=== PATIENT | male | born 1985 | race Caucasian/White ===

== ENCOUNTER 2018-05-09 18:39 | Inpatient (IN) | payer OTHER ==
[2018-05-09] MEDS ORDERED: SODIUM CHLORIDE 0.9% 1000 ML INFUS.BAG IV ONE (20:25)
[2018-05-09 20:54] LABS: EOS % 2.6 % (0-4.5); HEMATOCRIT 41.4 % (35.4-49); HEMOGLOBIN 13.8 GM/dL (11.7-16.9); LYMPH % 13.5 % (8-40); MCH 31.6 pg (25.7-33.7); MCHC 33.3 g/dl (32.0-35.9); MEAN CELL VOLUME 94.9 fl (80-96); MEAN PLT VOLUME 9.9 fl (7.5-11.1); NEUT % 72.9 % (42.8-82.8); PLATELET COUNT 294 K/MM3 (134-434); RBC 4.36 M/mm3 (4.00-5.60); RDW 14.9 % (11.9-15.9); WHITE BLOOD COUNT 11.6 K/mm3 (4.0-10.0)
[2018-05-09 21:15] LABS: INR 1.21 (0.83-1.09); PROTHROMBIN TIME (PATIENT) 14.3 SEC (9.7-13.0)
[2018-05-09 21:17] LABS: ACTIVATED PTT 34.6 SECONDS (25.2-36.5)
[2018-05-09 21:26] LABS: ALBUMIN 2.8 g/dl (3.4-5.0); ALK PHOS 256 U/L (45-117); ANION GAP 8 MMOL/L (8-16); BILIRUBIN,TOTAL 6.7 mg/dL (0.2-1); BLOOD UREA NITROGEN 8 mg/dL (7-18); CALCIUM 8.7 mg/dL (8.5-10.1); CHLORIDE 104 mmol/L (98-107); CO2 25 mmol/L (21-32); CREATININE 0.4 mg/dL (0.55-1.3); GLUCOSE,RANDOM 152 mg/dL (74-106); LIPASE 122 U/L (73-393); MAGNESIUM 2.1 mg/dL (1.8-2.4); PHOSPHOROUS 3.1 mg/dL (2.5-4.9); SGOT/AST 584 U/L (15-37); SGPT/ALT 641 U/L (13-61); SODIUM 137 mmol/L (136-145); TOT PROT 7.5 g/dl (6.4-8.2)
--- NOTE | 2018-05-09 21:37 | PDOC ---
History of Present Illness - General Chief Complaint: Pain Stated Complaint: ABD RUIZ /RASH Time Seen by Provider: 05/09/18 19:15 History Source: Patient Exam Limitations: No Limitations - History of Present Illness Initial Comments: This is a 33 YOM with h/o heavy EtOH use, cocaine use, and marijuana use who p/ w 3/10 epigastric abdominal pain for the past week, diffuse itchy red patchy rash on BUE, trunk, and knees for the past 1-2 days, and yellowing of the eyes worsening over the past week. He additionally notes nausea, decreased appetite, diarrhea, tiredness, and generalized weakness. He denies vomiting, fever, chills , constipation, black/bloody/white stool, abdominal distention, constipation, or other symptoms. He has never had symptoms like this before and has not taken medications for his symptoms. He notes drinking at least 5 beers a day at baseline, often more. He denies any recent travel or contact with sick individuals, and denies h/o hepatitis. He is accompanied by a edge stitcher who notes he has been behaving per his normal baseline. Past History - Past Medical History Allergies/Adverse Reactions: Allergies Allergy/AdvReac Type Severity Reaction Status Date / Time No Known Allergies Allergy Verified 05/09/18 20:37 Home Medications: Ambulatory Orders NK [No Known Home Medication] 05/09/18 COPD: No - Suicide/Smoking/Psychosocial Hx Smoking History: Never smoked Information on smoking cessation initiated: No Hx Alcohol Use: Yes Drug/Substance Use Hx: Yes (COCCAINE, WILLIAMS) Substance Use Type: None Review of Systems - Review of Systems Able to Perform ROS?: Yes Constitutional: Yes: Loss of Appetite, Malaise, Weakness. No: Chills, Fever, Unexplained wgt Loss HEENTM: Yes: Other (scleral icterus). No: Nose Congestion, Throat Pain Respiratory: No: Cough, Shortness of Breath Cardiac (ROS): No: Chest Pain, Palpitations ABD/GI: Yes: Diarrhea, Nausea, Other (abdominal pain). No: Abdominal Distended , Constipated, Vomiting : No: Burning, Dysuria Musculoskeletal: No: Back Pain, Neck Pain Integumentary: Yes: Pruritus, Rash. No: Bruising Neurological: No: Headache, Numbness, Tingling, Weakness, Dizziness Endocrine: No: Unexplained Weight Gain, Unexplained Weight Loss *Physical Exam - Vital Signs Last Vital Signs Temp Pulse Resp BP Pulse Ox 99.1 F 90 18 122/84 100 05/09/18 18:43 05/09/18 18:43 05/09/18 18:43 05/09/18 18:43 05/09/18 18:43 GENERAL: nontoxic appearing, nourished, A/Ox4, no acute distress, speaking in full sentences in Somali, answers questions appropriately, accompanied by edge stitcher, obvious scleral icterus but no obvious skin jaundice HEENT: PERRLA, EOMI, moist mucous membranes, no posterior pharyngeal erythema, no tonsillar swelling or exudates, no cervical lymphadenopathy NECK: No midline ttp, no spinal stepoff or deformity, full ROM, supple CARDIOVASCULAR: Regular rate and rhythm, normal S1S2, 1/6 systolic murmur, no gallops or rubs, radial and DP pulses 2+ and symmetric, capillary refill <2 seconds, extremities warm and well-perfused Chest wall: Normal appearance, no rash, no bruising, no costal stepoff or deformity, nontender to compression LUNGS/RESPIRATORY: No respiratory distress, normal and symmetric chest movements during respirations, lungs CTA bilaterally, equal breath sounds, no cyanosis, no nail clubbing GI/ABDOMEN: Normal symmetric appearance, normoactive bowel sounds, soft, mild epigastric ttp, no midline pulsatile masses, no palpated organomegaly : No CVA tenderness, normal external appearance, no lesions BACK: No midline ttp or stepoff or deformity of thoracic or lumbar spine EXTREMITIES: distal pulses 2+, warm and well-perfused, no LE edema SKIN: patchy coalescing erythematous patches scattered throughout BUE, anterior trunk, and to a lesser extend on anterior superior knees bilaterally, mild excoriations from scratching, skin otherwise warm and dry, no pallor, no jaundice (though scleral icterus noted), no bruising, no skin breakdown, no cuts NEUROLOGICAL: GCS 15, CN II-XII grossly intact, ambulating with normal gait, moving all extremities, 5/5 strength proximally and distally, no facial droop, no decreased sensation, no asterixis, no tremor Heart Score/ECG Review #1 05/09/18 21:38 NSR rate of 75 with normal axis and intervals, no ischemic ST-T changes ED Treatment Course - LABORATORY CBC & Chemistry Diagram: 05/09/18 20:30 05/09/18 20:30 - ADDITIONAL ORDERS Additional order review: 05/09/18 20:30 RBC 4.36 MCV 94.9 MCHC 33.3 RDW 14.9 MPV 9.9 Neutrophils % 72.9 Lymphocytes % 13.5 Monocytes % 10.0 Eosinophils % 2.6 Basophils % 1.0 - RADIOLOGY Radiology Studies Ordered: Category Date Time Status CHEST PA & LAT [RAD] Stat Radiology 05/09/18 20:25 Ordered - Medications Given in the ED: ED Medications Discontinued Medications Generic Name Dose Route Start Last Admin Trade Name Freq PRN Reason Stop Dose Admin Sodium Chloride 2,000 ml 05/09/18 20:25 05/09/18 20:47 Normal Saline - IV 05/09/18 20:26 2,000 ml ONCE ONE Administration Medical Decision Making - Medical Decision Making Pt with heavy EtOH use presents with jaundice, malaise, acute hepatitis. Initial Vital Signs Temp Pulse Resp BP Pulse Ox 99.1 F 90 18 122/84 100 05/09/18 18:43 05/09/18 18:43 05/09/18 18:43 05/09/18 18:43 05/09/18 18:43 Exam: As noted in Physical Exam section. DDX IBNLT: viral (ABCDE), toxins (e.g. alcohol/acetaminophen/ cap mushroom) , autoimmune, biliary tract obstruction, fatty liver disease, cirrhosis (e.g. h/ o EtOH dependence or HCC), SBP, hemolysis W/U ordered: CBCD CMP Mg Phos Coags UA UCx EKG CXR TX ordered: IVF EKG: Reviewed; results as noted in ECG Review section. CXR: Nothing acute Laboratory Tests 05/09/18 05/09/18 05/09/18 20:30 20:30 20:30 WBC 11.6 H RBC 4.36 Hgb 13.8 Hct 41.4 MCV 94.9 MCH 31.6 MCHC 33.3 RDW 14.9 Plt Count 294 MPV 9.9 Absolute Neuts (auto) 8.4 H Neutrophils % 72.9 Lymphocytes % 13.5 Monocytes % 10.0 Eosinophils % 2.6 Basophils % 1.0 Nucleated RBC % 0 PT with INR 14.30 H INR 1.21 H PTT (Actin FS) 34.6 Sodium 137 Potassium 4.0 Chloride 104 Carbon Dioxide 25 Anion Gap 8 BUN 8 Creatinine 0.4 L Creat Clearance w eGFR > 60 Random Glucose 152 H Calcium 8.7 Phosphorus 3.1 Magnesium 2.1 Total Bilirubin 6.7 H AST 584 H ALT 641 H Alkaline Phosphatase 256 H Creatine Kinase 30 Troponin I 0.03 Total Protein 7.5 Albumin 2.8 L Lipase 122 Acetaminophen Alcohol, Quantitative 05/09/18 05/09/18 05/09/18 20:30 20:30 20:30 WBC RBC Hgb Hct MCV MCH MCHC RDW Plt Count MPV Absolute Neuts (auto) Neutrophils % Lymphocytes % Monocytes % Eosinophils % Basophils % Nucleated RBC % PT with INR INR PTT (Actin FS) Sodium Potassium Chloride Carbon Dioxide Anion Gap BUN Creatinine Creat Clearance w eGFR Random Glucose Calcium Phosphorus Magnesium Total Bilirubin AST ALT Alkaline Phosphatase Creatine Kinase Cancelled Troponin I Cancelled Total Protein Albumin Lipase Cancelled Acetaminophen < 2.0 L Alcohol, Quantitative 43.5 H Vital Signs Temperature 98.1 F 05/09/18 23:15 Pulse Rate 84 05/09/18 23:15 Respiratory Rate 20 05/09/18 23:15 Blood Pressure 122/82 05/09/18 23:15 O2 Sat by Pulse Oximetry (%) 96 05/09/18 23:15 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 They require further hospital observation, workup, and treatment. Microblog sent to [facility] for admission. Blank Decision to Admit order is placed per ED protocol. *DC/Admit/Observation/Transfer Diagnosis at time of Disposition: Cholecystitis, Hyperbilirubinemia, Elevated transaminase level - Discharge Dispostion Condition at time of disposition: Guarded Decision to Admit order: Yes - Referrals - Patient Instructions - Post Discharge Activity
--- NOTE | 2018-05-10 00:27 | PDOC ---
Attending Attestation - Resident Resident Name: Skye Melendez - ED Attending Attestation I have performed the following: I have examined & evaluated the patient, The case was reviewed & discussed with the resident, I agree w/resident's findings & plan, Exceptions are as noted - HPI HPI: 05/10/18 00:25 The patient is a 33 year old male, with a past medical history of alcohol abuse , cocaine usage, and marijuana usage, who presents to the emergency department with 1 week of epigastric pain and upper left quadrant pain. Patient also endorses 2 days of diffuse rash. As per patients family, his eyes have become progressively yellow over the past week. The patient endorses nausea, generalized weakness, decreased appetite, and diarrhea. He denies any recent fevers, chills, headache or dizziness. He denies any recent nausea, vomit, diarrhea or constipation. He denies any recent chest pain or shortness of breath. He denies any recent dysuria, frequency, urgency or hematuria. Allergies: NKDA Past surgical history: None reported. Social History: Alcohol abuse (minimum 5 beers per day) Marijuana and cocaine usage. - Physicial Exam PE: 05/10/18 00:26 GENERAL: Awake, alert, and fully oriented, in no acute distress. HEAD: No signs of trauma EYES: + scleral icterus, PERRLA, EOMI, conjunctiva clear ENT: Auricles normal inspection, hearing grossly normal, nares patent, oropharynx clear without exudates. Moist mucosa NECK: Nontender, no stepoffs, Normal ROM, supple, no lymphadenopathy, JVD, or masses LUNGS: Breath sounds equal, clear to auscultation bilaterally. No wheezes, and no crackles HEART: Regular rate and rhythm, normal S1 and S2, no murmurs, rubs or gallops ABDOMEN: + epigastric TTP, negative hernandez's, normoactive bowel sounds. No guarding, no rebound. No masses EXTREMITIES: Normal range of motion, no edema. No clubbing or cyanosis. No cords, erythema, or tenderness NEUROLOGICAL: Cranial nerves II through XII intact. 5/5 strength and sensation in all extremities, Normal speech, normal gait, normal cerebellar function SKIN: + jaundice - Medical Decision Making 05/10/18 00:26 33 M with jaundice and abdominal pain. Has h/o ETOH abuse. Concerning for liver failure. WIll also evaluate for biliary obstruction, though pt has negative hernandez's. - Labs - RUQ sono
[2018-05-10] MEDS ORDERED: SODIUM CHLORIDE 0.9% 500 ML INFUS.BAG IV ONE (00:43)
[2018-05-10] MEDS ORDERED: VANCOMYCIN 1 GRAM (PRE-DOCKED) 1,000 MG/250 ML BAG IVPB ONE ×2 (00:43→01:07)
[2018-05-10] MEDS ORDERED: PIPERACILLIN/TAZOB 4.5 GM 4.5 GM in DEXTROSE 5%-WATER 100 ML IVPB ONE (00:43)
[2018-05-10] MEDS ORDERED: PIPERACILLIN/TAZOB 4.5 GM 4.5 GM/100 ML BAG IVPB ONE (01:07)
--- NOTE | 2018-05-10 01:27 | PN ---
Teaching Attending Note Name of Resident: Ruben Tate ATTENDING PHYSICIAN STATEMENT I saw and evaluated the patient. I reviewed the resident's note and discussed the case with the resident. I agree with the resident's findings and plan as documented. SUBJECTIVE: Patient is a 33 year old man with history of heavy EtOH use, cocaine use, and marijuana use who presents with epigastric abdominal pain for the past week, diffuse itchy red patchy rash on BUE, trunk, and knees for the past 1-2 days, and yellowing of the eyes. He additionally notes nausea, decreased appetite, diarrhea, tiredness, and generalized weakness. He denies vomiting, fever, chills , constipation, black/bloody/white stool, abdominal distention or constipation. He has never had symptoms like this before and has not taken medications for his symptoms. He notes drinking at least 5 beers a day at baseline, often more. He denies any recent travel or contact with sick individuals, and denies history of hepatitis. He is accompanied by a steam blocker who notes he has been behaving per his normal baseline. OBJECTIVE: Alert Vital Signs Period Temp Pulse Resp BP Sys/Johnson Pulse Ox Last 24 Hr 98.1 F-99.1 F 84-90 18-20 122-122/82-84 96-100 HEENT: +++Jaundice, eye redness or discharge, PERRLA, EOMI. Normocephalic, atraumatic. External ears are normal and hearing is grossly intact. No nasal discharge. Neck: Supple, nontender. No palpable adenopathy or thyromegaly. No JVD Chest: Good effort. Clear to auscultation and percussion. Heart: Regular. No S3, rub or murmur Abdomen: Not distended, soft, epigastric tenderness and no HSM. No rebound or guarding. Normoactive bowel sounds. Ext: Peripheral pulses intact. No leg edema. Skin: Warm and dry. Generalized erythematous macucopapular rash; No petechiae or ecchymosis. Neuro: Alert. Oriented x3. Fine tremors; no asterexis; CN 2-12 grossly intact. Sensation grossly intact in all four extremities and DTR are symmetric. Current Medications Generic Name Dose Route Start Last Admin Trade Name Freq PRN Reason Stop Dose Admin Folic Acid 1 mg/ Thiamine HCl 1,000 mls @ 125 mls/hr 05/10/18 01:37 05/10/18 02:20 100 mg/ Multivitamins/Minerals IVPB 05/10/18 09:36 125 mls/hr 10 ml/ Sodium Chloride ONCE ONE Administration Home Medications Medication Instructions Recorded NK [No Known Home Medication] 05/09/18 Abnormal Lab Results 05/09/18 05/09/18 05/09/18 20:30 20:30 20:30 WBC 11.6 H Absolute Neuts (auto) 8.4 H PT with INR 14.30 H INR 1.21 H Creatinine 0.4 L Random Glucose 152 H Total Bilirubin 6.7 H AST 584 H ALT 641 H Alkaline Phosphatase 256 H Albumin 2.8 L Acetaminophen Alcohol, Quantitative 05/09/18 20:30 WBC Absolute Neuts (auto) PT with INR INR Creatinine Random Glucose Total Bilirubin AST ALT Alkaline Phosphatase Albumin Acetaminophen < 2.0 L Alcohol, Quantitative 43.5 H ASSESSMENT AND PLAN: 1. Acute Hepatitis/Cholecystitis - Sonogram showed cholecystitis without any evidence of bile duct obstruction - CT scan of abdomen is pending for further clarification. Associated rash suggests acute Hepatitis C disease or rash may be "after the fact" - due to pruritus induced by liver disease caused by alcohol. Hepatitis serology sent. Treat Cholecystitis with IV Zosyn pending surgery evaluation. Get UA, HIV test and urine toxicology. Avoid all factors that may precipitate hepatic encephalopathy and monitor closely for features of hepatic encephalopathy. Will decide on treatment with lactulose and rifaximin once abdominal CT scan result is available. Consult GI and Surgery. 2. Alcohol abuse - Implement [facility] alcohol withdrawal protocol and fall precautions. Treat with thiamine, banana bag and folic acid and monitor electrolytes (Ca,Mg,K,P). 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 3. DVT prophylaxis - SCD, TEDs 4. Advance directives - Full code
[2018-05-10] MEDS ORDERED: FOLIC ACID INJECTION - 1 MG, THIAMINE HCL 100 MG, MULTIVIT INJECTION ADULT 10 ML in SOD... IVPB ONE (01:37)
--- NOTE | 2018-05-10 02:45 | HP ---
CHIEF COMPLAINT: PCP: None HISTORY OF PRESENT ILLNESS: Pt is a 33 y/o gentleman with a past medical history of substance abuse who presented to [facility] yesterday evening (05/09/18) c/o epigastric pain 3/10 in severity, intense itchying on his upper extremities, abdomen, and left knee, and "yellowing of his eyes" which began 2 weeks ago. Rash has been present for approximately 2 days. Pain has been present for 1 week. Pt has vomited 3 times since this past Wednesday. Vomit is described as yellow and nonbloody. Furthermore, pt endorses decreased appetite and general malaise for the past 2 weeks. Pt states he has never experienced these symptoms in the past and has not tried any remedies for his symptoms. Pt endorses that he consumes about 5-6 beers per day and has increased his alcohol intake the past 1 year. Also endorses using cocaine approximately once a week. Denies constipation, bloody stool, chest pain, shortness of breath, dysuria, frequency, urgency or hematuria. ER course was notable for: (1) AST/ALT 584/641 respectively (2) Alcohol tox--> 43.5 (3) Bilirubin 6.7 Recent Travel: denies PAST MEDICAL HISTORY: Substance abuse-Alcohol, cocaine. PAST SURGICAL HISTORY: Denies Social History: Smoking: Smokes Marijuana Alcohol: Consumes 5/6 beers/day. Drugs: Cocaine use approximately once/week Family History: Allergies No Known Allergies Allergy (Verified 05/09/18 20:37) HOME MEDICATIONS: Home Medications Medication Instructions Recorded NK [No Known Home Medication] 05/09/18 REVIEW OF SYSTEMS CONSTITUTIONAL: PRESENT: generalized weakness, malaise, loss of appetite HEENT: Absent: rhinorrhea, nasal congestion, throat pain, throat swelling, difficulty swallowing, mouth swelling, ear pain, eye pain, visual changes CARDIOVASCULAR: Absent: chest pain, syncope, palpitations, irregular heart rate, lightheadedness , peripheral edema RESPIRATORY: Absent: cough, shortness of breath, dyspnea with exertion, orthopnea, wheezing, stridor, hemoptysis GASTROINTESTINAL: PRESENT: abdominal pain, , nausea, vomiting GENITOURINARY: Absent: dysuria, frequency, urgency, hesitancy, hematuria, flank pain, genital pain MUSCULOSKELETAL: Absent: myalgia, arthralgia, joint swelling, back pain, neck pain SKIN: Absent: rash, itching, pallor HEMATOLOGIC/IMMUNOLOGIC: Absent: easy bleeding, easy bruising, lymphadenopathy, frequent infections ENDOCRINE: Absent: unexplained weight gain, unexplained weight loss, heat intolerance, cold intolerance NEUROLOGIC: Absent: headache, focal weakness or paresthesias, dizziness, unsteady gait, seizure, mental status changes, bladder or bowel incontinence PSYCHIATRIC: Absent: anxiety, depression, suicidal or homicidal ideation, hallucinations. PHYSICAL EXAMINATION Vital Signs - 24 hr 05/09/18 05/09/18 18:43 23:15 Temperature 99.1 F 98.1 F Pulse Rate 90 Pulse Rate [ 84 Left Radial] Respiratory 18 20 Rate Blood Pressure 122/84 Blood Pressure 122/82 [Left Arm] O2 Sat by Pulse 100 96 Oximetry (%) GENERAL: AAOx3, NAD HEAD: NC/AT EYES: PERRLA, EOMI, Scleral icterus EARS, NOSE, THROAT: MMM LUNGS: Clear to auscultation b/l, no wheezing, rhonchi, or rales HEART: RRR no MRG S1 S2 ABDOMEN: Multiple erythematous rashes on abdomen 2/2 intense itchying, ND, NT, No HSM. [place] - MUSCULOSKELETAL: FROM UPPER EXTREMITIES: No CCE LOWER EXTREMITIES: No CCE NEUROLOGICAL: Cn 2-12 intact PSYCHIATRIC: Cooperative. Good eye contact. Appropriate mood and affect. SKIN: Rashes left upper knee, b/l antecubital fossa, abdomen Laboratory Results - last 24 hr 05/09/18 05/09/18 05/09/18 20:30 20:30 20:30 WBC 11.6 H RBC 4.36 Hgb 13.8 Hct 41.4 MCV 94.9 MCH 31.6 MCHC 33.3 RDW 14.9 Plt Count 294 MPV 9.9 Absolute Neuts (auto) 8.4 H Neutrophils % 72.9 Lymphocytes % 13.5 Monocytes % 10.0 Eosinophils % 2.6 Basophils % 1.0 Nucleated RBC % 0 PT with INR 14.30 H INR 1.21 H PTT (Actin FS) 34.6 Sodium 137 Potassium 4.0 Chloride 104 Carbon Dioxide 25 Anion Gap 8 BUN 8 Creatinine 0.4 L Creat Clearance w eGFR > 60 Random Glucose 152 H Calcium 8.7 Phosphorus 3.1 Magnesium 2.1 Total Bilirubin 6.7 H AST 584 H ALT 641 H Alkaline Phosphatase 256 H Creatine Kinase 30 Troponin I 0.03 Total Protein 7.5 Albumin 2.8 L Lipase 122 Acetaminophen Alcohol, Quantitative 05/09/18 05/09/18 05/09/18 20:30 20:30 20:30 WBC RBC Hgb Hct MCV MCH MCHC RDW Plt Count MPV Absolute Neuts (auto) Neutrophils % Lymphocytes % Monocytes % Eosinophils % Basophils % Nucleated RBC % PT with INR INR PTT (Actin FS) Sodium Potassium Chloride Carbon Dioxide Anion Gap BUN Creatinine Creat Clearance w eGFR Random Glucose Calcium Phosphorus Magnesium Total Bilirubin AST ALT Alkaline Phosphatase Creatine Kinase Cancelled Troponin I Cancelled Total Protein Albumin Lipase Cancelled Acetaminophen < 2.0 L Alcohol, Quantitative 43.5 H ASSESSMENT/PLAN: Pt is a 33 y/o gentleman with a past medical history of substance abuse who presented to [facility] yesterday evening (05/09/18) c/o epigastric pain 3/10 in severity, intense itchying on his upper extremities, abdomen, and left knee, and "yellowing of his eyes" which began 2 weeks ago. # Transaminitis 2/2 Hepatitis/substance abuse? -AST/ALT 584/641 respectively - Bilirubin 6.7 -Alk Phos 256 -U/S Abdomen--> Moderate suspicion for Cholecystitis w/o billiary duct dilation -Hepatitis serology pending -Urine Drug screen pending -Abdomen/Pelvis CT w/ contrast pending -Surgery Consult -G.I consult -CIWA score 7 indicating mild withdrawal -Librium protocol initiated -Thiamine -Banana Bag -Folic Acid -HIV testing # Possible Cholecystitis -WBC 11.6 -U/S Abdomen --> Moderate suspicion for Cholecystitis w/o billiary duct dilation -Surgery, Dr Trejo on board -IV Zosyn/Vancomycin Given in ED -NPO FEN D51/2NS Monitor Electrolytes NPO DVT ppx: Heparin SQ TID Dispo: Continue to monitor Visit type - Emergency Visit Emergency Visit: Yes ED Registration Date: 05/10/18 Care time: The patient presented to the Emergency Department on the above date and was hospitalized for further evaluation of their emergent condition. - New Patient This patient is new to me today: Yes Date on this admission: 05/10/18 - Critical Care Critical Care patient: No
[2018-05-10 03:00] LABS: URINE APPEARANCE CLEAR; URINE BILIRUBIN NEGATIVE (<2.0 mg/dL); URINE COLOR AMBER; URINE GLUCOSE (UA) NEGATIVE (NEGATIVE); URINE KETONE 1+ (NEGATIVE); URINE LEUK ESTERASE TRACE (NEGATIVE); URINE NITRITE NEGATIVE (NEGATIVE); URINE PROTEIN NEGATIVE (NEGATIVE)
[2018-05-10 03:07] LABS: EPI CELLS RARE /HPF (FEW); URINE BACTERIA RARE /hpf (NONE SEEN); URINE MUCUS RARE
[2018-05-10] MEDS ORDERED: chlordiazePOXIDE HCL 25 MG CAPSULE PO PRN (03:10)
[2018-05-10 05:34] VITALS: BMI 24.2
[2018-05-10] MEDS ORDERED: HEPARIN NA (PORCINE) 5,000 UNITS/ML 1ML VIAL SQ SCH (06:00)
[2018-05-10] MEDS: DEXTROSE 5%-0.45% SALINE 1,000 ML IV SCH ×2 (06:28→21:38)
[2018-05-10] MEDS: chlordiazePOXIDE HCL 25 MG CAPSULE PO SCH ×4 (06:28→22:13)
[2018-05-10 08:25] LABS: BASO % 1.3 % (0-2.0); EOS % 2.1 % (0-4.5); HEMOGLOBIN 12.7 GM/dL (11.7-16.9); LYMPH % 14.3 % (8-40); MCH 31.8 pg (25.7-33.7); MCHC 33.5 g/dl (32.0-35.9); MEAN PLT VOLUME 9.9 fl (7.5-11.1); MONO % 8.9 % (3.8-10.2); NEUT % 73.4 % (42.8-82.8); PLATELET COUNT 235 K/MM3 (134-434); RDW 14.8 % (11.9-15.9); WHITE BLOOD COUNT 9.6 K/mm3 (4.0-10.0)
[2018-05-10 08:39] LABS: INR 1.26 (0.83-1.09); PROTHROMBIN TIME (PATIENT) 14.9 SEC (9.7-13.0)
[2018-05-10 08:42] LABS: ACTIVATED PTT 35.3 SECONDS (25.2-36.5)
[2018-05-10 08:57] LABS: ANION GAP 7 MMOL/L (8-16); BLOOD UREA NITROGEN 6 mg/dL (7-18); CALCIUM 8.3 mg/dL (8.5-10.1); CHLORIDE 101 mmol/L (98-107); CO2 26 mmol/L (21-32); CREATININE 0.4 mg/dL (0.55-1.3); GLUCOSE,RANDOM 156 mg/dL (74-106); PHOSPHOROUS 3.8 mg/dL (2.5-4.9); SODIUM 134 mmol/L (136-145)
[2018-05-10 09:05] LABS: ALBUMIN 2.5 g/dl (3.4-5.0); BILIRUBIN,DIRECT 5.1 mg/dL (0.0-0.2); BILIRUBIN,TOTAL 6.7 mg/dL (0.2-1); TOT PROT 6.5 g/dl (6.4-8.2)
[2018-05-10] MEDS ORDERED: PT OWN MED DRAWER 7, Y5N ONE ×3 (10:00→21:31)
[2018-05-10] MEDS: AMPICILLIN NA/SULBACTAM NA 3 GM in SODIUM CHLORIDE 100 ML IVPB SCH ×3 (10:03→21:38)
[2018-05-10 10:06] LABS: ALBUMIN 2.5 g/dl (3.4-5.0); ALK PHOS 211 U/L (45-117); BILIRUBIN,DIRECT 5.1 mg/dL (0.0-0.2); BILIRUBIN,TOTAL 6.7 mg/dL (0.2-1); SGOT/AST 421 U/L (15-37); SGPT/ALT 495 U/L (13-61); TOT PROT 6.5 g/dl (6.4-8.2)
[2018-05-10] MEDS ORDERED: LORazepam 2 MG/ML SDV VIAL IM PRN (10:18)
--- NOTE | 2018-05-10 11:17 | CONSULT ---
Consult Consult Specialty:: General Surgery Referred by:: Blas Warren Reason for Consultation:: elevated LFTs, jaundice, pericholecystic fluid, no gallstones - History of Present Illness Chief Complaint: jaundice, epigastric pain, pruritus History of Present Illness: 33yo M with no medical or surgical history, polysubstance abuser (EtOH , cocaine, marijuana), admitted to medicine through the ER with 2 weeks of jaundice and pruritus, 1 week of epigastric pain (points just left of upper midline), associated with few episodes of N/V last Wed and (preceded by pain, accompanied by dizziness), darkening of urine, diarrhea all last week ( yellow), occasional chills but no fever, no recent illness, and more recent development of rash with the itching. About a year ago, he describes somewhat similar epigastric pain, but did not seek medical attention for it at the time. He has drunk beer daily/regularly since his teens, but only in last year has increased to 6-8+ beers a day. He denies using liquor or wine. He also used to smoke MJ daily, but stopped several months ago, though he did have some about 2 weeks ago. Also snorts cocaine about weekly, last on Wednesday. Denies IVDU. In the ER, he was afebrile, with wbc 11, elevated LFTs with bili 6.7, lipase 111 , INR 1.2, EtOH level 43.5, and US showed distended gallbladder without stones, but with small pericholecystic fluid and mildly thickened wall, normal cbd. CT was then done, confirming these findings, with fatty, enlarged liver. No ductal dilation noted. Pancreas was not remarkable on CT. Surgery is asked to assess. He is seen and examined in his room, just returned from bathroom. He denies pain now, but points to upper midline, just to the left side, when asked where it was. He is getting Librium taper for his EtOH use, IV fluids and antibiotics for possible cholecystitis. - History Source History Provided By: Patient Limitations to Obtaining History: Language Barrier (Iraqi - Karla Yusuf, MS3 facilitated at bedside) - Past Medical History Psych: Yes: Addictions (EtOH, cocaine, marijuana) - Past Surgical History Past Surgical History: Yes: None - Alcohol/Substance Use Hx Alcohol Use: Yes (6-8+ beers/day in last year, increased over daily use since teens) Number of Drinks Daily: 8 (12+ Wednesday, 2 Wednesday, 0 Wednesday) History of Substance Use: reports: Cocaine (weekly, last on Wednesday), Marijuana (daily till ~5 mos ago, used 2 wks ago once) - Smoking History Smoking history: Never smoked (cigarettes) Have you smoked in the past 12 months: No Aproximately how many cigarettes per day: 0 (no cigarettes) - Social History ADL: Independent 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 denies: Fever Eyes: denies: Blurred Vision, Recent Change in Vision HENT: denies: Difficult Swallowing, Nasal Congestion, Throat Pain Neck: denies: Swollen Glands, Tenderness Cardiovascular: denies: Chest Pain, Palpitations Respiratory: reports: Orthopnea (? has felt occasional trouble breathing when lying down to sleep at night). denies: Cough Gastrointestinal: reports: Abdominal Pain (with hpi), Diarrhea (with hpi, yellow ), Nausea (with hpi), Vomiting (with hpi). denies: Constipation, Vomiting Blood Genitourinary: reports: Other (darker urine recently). denies: Burning, Dysuria Musculoskeletal: reports: Muscle Pain (had stressed posterior left shoulder). denies: Back Pain, Joint Pain Integumentary: reports: Change in Color (2 wks yellowish eyes and skin), Pruritis (about 2 weeks), Rash (more recently with itching) Neurological: denies: Dizziness, Headache, Unsteady Gait Psychiatric: denies: Anxiety, Depression Physical Exam Vital Signs: Vital Signs Temperature 97.8 F 05/10/18 03:31 Pulse Rate 74 05/10/18 03:31 Respiratory Rate 18 05/10/18 07:00 Blood Pressure 121/74 05/10/18 03:31 O2 Sat by Pulse Oximetry (%) 98 05/10/18 07:00 Constitutional: Yes: Well Nourished, No Distress, Calm Eyes: Yes: EOM Intact, Sclera Icterus HENT: Yes: Atraumatic, Normocephalic Neck: Yes: Supple, Trachea Midline Cardiovascular: Yes: Regular Rate and Rhythm. No: Murmur Respiratory: Yes: CTA Bilaterally Gastrointestinal: Yes: Normal Bowel Sounds, Soft, Tenderness (minimal RLQ, none in RUQ), Tenderness, Epigastrium (minimal, no michelle/guard). No: Distention, Tenderness, Rebound, Vomiting ...Rectal Exam: Yes: Deferred Renal/: No: CVA Tenderness - Left, CVA Tenderness - Right Musculoskeletal: No: Back Pain (no direct tenderness), Joint Swelling Extremities: No: Cool, Cyanosis Edema: No Peripheral Pulses WNL: Yes Integumentary: Yes: Jaundice, Rash (diffuse subtle macular pink spots on trunk, arms with few healing scratch roblero) Neurological: Yes: Alert, Oriented. No: Tremors, Unsteady Gait Psychiatric: Yes: Alert, Oriented Labs: CBC, BMP 05/10/18 07:10 05/10/18 07:10 CMP Sodium 134 mmol/L (136-145) L 05/10/18 07:10 Potassium 4.0 mmol/L (3.5-5.1) 05/10/18 07:10 Chloride 101 mmol/L (98-107) 05/10/18 07:10 Carbon Dioxide 26 mmol/L (21-32) 05/10/18 07:10 Anion Gap 7 MMOL/L (8-16) L 05/10/18 07:10 BUN 6 mg/dL (7-18) L 05/10/18 07:10 Creatinine 0.4 mg/dL (0.55-1.3) L 05/10/18 07:10 Creat Clearance w eGFR > 60 (>60) 05/10/18 07:10 Random Glucose 156 mg/dL (74-106) H 05/10/18 07:10 Calcium 8.3 mg/dL (8.5-10.1) L 05/10/18 07:10 Phosphorus 3.8 mg/dL (2.5-4.9) 05/10/18 07:10 Magnesium 2.0 mg/dL (1.8-2.4) 05/10/18 07:10 Total Bilirubin 6.7 mg/dL (0.2-1) H 05/10/18 07:10 Direct Bilirubin 5.1 mg/dL (0.0-0.2) H 05/10/18 07:10 AST 421 U/L (15-37) H 05/10/18 07:10 ALT 495 U/L (13-61) H 05/10/18 07:10 Alkaline Phosphatase 211 U/L (45-117) H 05/10/18 07:10 Creatine Kinase 30 IU/L (26-308) 05/09/18 20:30 Troponin I 0.03 ng/ml (0.00-0.05) 05/09/18 20:30 Total Protein 6.5 g/dl (6.4-8.2) 05/10/18 07:10 Albumin 2.5 g/dl (3.4-5.0) L 05/10/18 07:10 Lipase 122 U/L (73-393) 05/09/18 20:30 LFTs elevated with direct hyperbilirubinemia wbc was 11, now normal with hydration renal function normal Na little low lipase normal INR, PTT INR 1.26 (0.83-1.09) H 05/10/18 07:10 Urine Test Results Urine Color Hilary 05/10/18 02:26 Urine Appearance Clear 05/10/18 02:26 Urine pH 6.0 (5.0-8.0) 05/10/18 02:26 Ur Specific Edward 1.015 (1.010-1.035) 05/10/18 02:26 Urine Protein Negative (NEGATIVE) 05/10/18 02:26 Urine Glucose (UA) Negative (NEGATIVE) 05/10/18 02:26 Urine Ketones 1+ (NEGATIVE) H 05/10/18 02:26 Urine Blood Negative (NEGATIVE) 05/10/18 02:26 Urine Nitrite Negative (NEGATIVE) 05/10/18 02:26 Urine Bilirubin Negative (<2.0 mg/dL) 05/10/18 02:26 Ur Leukocyte Esterase Trace (NEGATIVE) 05/10/18 02:26 Ur Epithelial Cells Rare /HPF (FEW) 05/10/18 02:26 Urine Bacteria Rare /hpf (NONE SEEN) 05/10/18 02:26 Urine Mucus Rare 05/10/18 02:26 Imaging - Results Cat Scan: Report Reviewed, Image Reviewed (images personally reviewed - no gallstones, small pericholecystic fluid without ductal dilation, no obstruction , pancreas ok, no appendicitis or diverticulitis, liver does not appear grossly nodular, but is enlarged) Ultrasound: Report Reviewed, Image Reviewed (images personally reviewed, cbd normal, no gallstones or sludge appreciated, gb just over 8cm long, small pericholecystic fluid, mild wall thickening) MRI: Pending Problem List - Problems (1) Hyperbilirubinemia Code(s): E80.6 - OTHER DISORDERS OF BILIRUBIN METABOLISM (2) Elevated transaminase level Code(s): R74.0 - NONSPEC ELEV OF LEVELS OF TRANSAMNS & LACTIC ACID DEHYDRGNSE (3) Abnormal AST and ALT Code(s): R74.8 - ABNORMAL LEVELS OF OTHER SERUM ENZYMES (4) Abnormal alkaline phosphatase test Code(s): R74.8 - ABNORMAL LEVELS OF OTHER SERUM ENZYMES (5) Alcohol induced fatty liver Code(s): K70.0 - ALCOHOLIC FATTY LIVER (6) Alcohol abuse with other alcohol-induced disorder Code(s): F10.188 - ALCOHOL ABUSE WITH OTHER ALCOHOL-INDUCED DISORDER (7) Cocaine abuse Code(s): F14.10 - COCAINE ABUSE, UNCOMPLICATED (8) Marijuana abuse Code(s): F12.10 - CANNABIS ABUSE, UNCOMPLICATED Assessment/Plan admitted to medicine suspect primary liver (or pancreas) problem more than gallbladder pathology - doubt acalculous cholecystitis hep panels pending NPO/IVF trend labs check ammonia level, baseline MRI/MRCP with contrast pending GI consultation, possible ERCP will follow with you
--- NOTE | 2018-05-10 11:46 | EKG ---
Test Reason : Blood Pressure : / mmHG Vent. Rate : 075 BPM Atrial Rate : 075 BPM P-R Int : 136 ms QRS Dur : 080 ms QT Int : 416 ms P-R-T Axes : 040 000 010 degrees QTc Int : 464 ms NORMAL SINUS RHYTHM NORMAL ECG NO PREVIOUS ECGS AVAILABLE Confirmed by Sergio Guerrier MD ([id number]) on 05/10/2018 11:46:28 AM Referred By: Confirmed By:Sergio Guerrier MD
--- NOTE | 2018-05-10 13:04 | PN ---
Teaching Attending Note Name of Resident: Verenice Russell ATTENDING PHYSICIAN STATEMENT I saw and evaluated the patient. I reviewed the resident's note and discussed the case with the resident. I agree with the resident's findings and plan as documented. SUBJECTIVE: No fever or chills, No abd pain, reports intermittent abd pain x 2 weeks , then became intense and more prolonged in past 2 days . He has no abd pain now. He reports pain coming after before meals. pain was associated with N/V , of non bloody non bilious emesis. he describes episodes of black stool . he denies any NSAIDs or ASA use. He has no known diagnosis of cirrhosis. He does not have a known liver or GI disease . and he has no GI doctor . stool is light yellow now urine is dark yellow . rash appeared in past 2 days, and itchiness also in past 2 days . reports heavy daily alcohol use for past year. OBJECTIVE: NAD, awake , alert , oriented , cooperative . HEENT: EOMI, jaundiced skin, icteric sclera, round equal pupils, reactive to light. jaundiced MM. CV: RRR, no MRG Lungs: CTAB Ext : No edema , no erythema ,no tremor , and no Asterixis. Abd: soft, minimal discomfort in RUQ, with neg Lopez's and no rebound tenderness or guarding. liver is not palpated or percussed. spleen is not palpated .- shifting dullness. Skin; macular rash on abd , chest, upper and lower extremities. blanching. Rectal exam : to be done by resident at a later time ASSESSMENT AND PLAN: 33 y/o man with h/o Alcohol abuse who presented with abd pain and jaundice x 2 weeks and was found to have transaminitis . 1- Transaminitis: LFTS indicate mixed picture. likely he has alcoholic hepatitis , but obstructive process need to be r/o . NL CBD on US and absence of stones in gall bladder does not r/o CBD obstruction ( stone vs. tumor). Of course, acute viral hepatitis is in DDx. other causes like PSC,....are in DDX but less likely. - check MRCP to r/o CBD stone/tumor or pancreatic head tumors - Discriminant function 17.3 , which indicate no need for steroids. - Start ABx as acute cholecystitis can't be completely excluded. follow MRI. - NPo , IVF - no signs of hepatic encephalopathy - trend lFTS 2- ETOH abuse. No signs of Wernicke's encephalopathy. no signs of withdrawal. received IV thiamine in ER - dc librium and start PRN ativan due to LFTS abnormalities - thiamine, folate, and MVT - monitor for signs of withdrawal - Monitor electrolytes to avoid reffeding sx 3- hyperglycemia: fasting glucose of 154. - check A1c 4- Reported h/o dark stool: ? gastritis/ulcer with alcohol use . or ? chronic variceal bleed. No anemia on labs - rectal exam to be done later - check OB in stool - might need EGD at some point. 5- SCDs HLOC
--- NOTE | 2018-05-10 15:22 | CON.GI ---
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 History of Present Illness: 33M admitted for evaluation of scleral icterus. He states that his eyes have been yellow for the past 2 weeks. He states that last week he had some abdominal pain and vomited. He currently denies abdominal pain. he describes being admitted to [facility] 2 months ago for back pain. He denies recent travel, sexual promiscuity / activity and denies sex with prostitutes. He denies h/o IVDA. He drinks 7-8 beers per day and has been drinking since a young age. He also abuses intranasal cocaine. He denies prior history of alcohol withdrawal. There is no family history of liver disease. Liver US revealed thick walled GB without evidence of gallstones, hepatomegaly and diffuse fatty infiltration of the liver. CT scan revealed a small amount of pericholecystic fluid. - History Source History Provided By: Patient Limitations to Obtaining History: No Limitations - Past Medical History Psych: Yes: Addictions (EtOH, cocaine, marijuana) - Past Surgical History Past Surgical History: Yes: None - Alcohol/Substance Use Hx Alcohol Use: Yes (6-8+ beers/day in last year, increased over daily use since teens) Number of Drinks Daily: 8 (12+ Wednesday, 2 Wednesday, 0 Wednesday) History of Substance Use: reports: Cocaine (weekly, last on Wednesday, intranasal), Marijuana (daily till ~5 mos ago, used 2 wks ago once) - Smoking History Smoking history: Never smoked (cigarettes) Have you smoked in the past 12 months: No Aproximately how many cigarettes per day: 0 (no cigarettes) - Social History Usual Living Arrangement: With Spouse ADL: Independent Occupation: Currently unemployed Place of : Other ([place]) Came to [place]year[place] 2004 History of Recent Travel: No Home Medications - Allergies Allergies/Adverse Reactions: Allergies Allergy/AdvReac Type Severity Reaction Status Date / Time No Known Allergies Allergy Verified 05/09/18 20:37 - Home Medications Home Medications: Ambulatory Orders NK [No Known Home Medication] 05/09/18 Family Disease History - Family Disease History Family Disease History: Diabetes: Father ( of diabetic complications), Mother (Alive), Heart Disease: Father, Other: Mother, Sister (1, healthy), Son ( 1, healthy), Daughter (1, healthy) Other Family History: No family history of liver disease Review of Systems - Review of Systems Constitutional: reports: Unintentional Wgt. Loss. denies: Fever Cardiovascular: denies: Chest Pain Respiratory: denies: SOB Gastrointestinal: reports: Abdominal Pain (resolved last week) Physical Exam-GI Vital Signs: Vital Signs Temperature 98.6 F 05/10/18 14:56 Pulse Rate 62 05/10/18 14:56 Respiratory Rate 18 05/10/18 14:56 Blood Pressure 112/68 05/10/18 14:56 O2 Sat by Pulse Oximetry (%) 98 05/10/18 07:00 Constitutional: Yes: Calm Eyes: Yes: Sclera Icterus Cardiovascular: Yes: Regular Rate and Rhythm. No: Murmur Respiratory: Yes: CTA Bilaterally Gastrointestinal Inspection: No: Distention, Scars ...Auscultate: Yes: Normoactive Bowel Sounds ...Palpate: Yes: Hepatomegaly. No: Splenomegaly, Tenderness ...Percussion: No: Tympanitic Edema: No (No LE edema) Neurological: No: Asterixis Labs: CBC, BMP 05/10/18 07:10 05/10/18 07:10 INR 1.26 (0.83-1.09) H 05/10/18 07:10 05/09/18 05/10/18 20:30 07:10 Hepatitis A IgM Ab Pending Hepatitis A Ab Total Pending Hep Bs Antigen Pending Pending Hep Bs Antibody Pending Hep B Core Total Ab Pending Hep B Core IgM Ab Pending Hepatitis C Antibody Pending 05/09/18 20:30 Creatine Kinase 30 Lipase 122 HEPATITIS DISCRIMINANT FUNCTION: 20 Imaging - Results Cat Scan: Report Reviewed, Image Reviewed Ultrasound: Report Reviewed Problem List - Problems (1) Alcoholic hepatitis Assessment/Plan: Suspected alcoholic hepatitis agree with surgery. doubt acalculous cholecystitis leading to the current clinical picture of two weeks of progressive jaundice. I suspect that the gallbladder findings are reactive from inflammatory process of the liver and reflecting his hypoalbuminemic state. The biliary tract on admissting US is not dilated making an extrahepatic obstructive process less likely. Advise the following: Avoid hepatotoxic agents MRI with and without contrast/MRCP ordered to evaluate hepatic parenchyma, biliary tract and portal venous system Supportive measures Await hepatitis seroloigies Advised the patient that he needs to completely abstain from alcohol. If not, i explained that he will likely from complications of his alcoholism. Monitor liver chemistries Monitor for withdrawal No role for for corticosteroid therapy at this time. Code(s): K70.10 - ALCOHOLIC HEPATITIS WITHOUT ASCITES Qualifiers: Ascites presence: without ascites Qualified Code(s): K70.10 - Alcoholic hepatitis without ascites
[2018-05-10] MEDS ORDERED: PNEUMOCOCCAL 23 VACCINE 0.5 ML VIAL IM ONE (17:00)
[2018-05-10] MEDS ORDERED: PNEUMOC 13-VAL CONJ-DIP CRM/PF 0.5 ML DISP.SYRIN IM ONE (17:30)
--- NOTE | 2018-05-10 19:37 | PN ---
Physical Exam: SUBJECTIVE: Patient seen and examined this morning at bedside. Has been having abdominal pain x 2 weeks that has changed in intensity over the past 2 days. Pain is accompanied by nausea and NBNB vomiting. Additionally complains of diffuse, pruritic rash that developed accompanying this change in pain. Denies fevers, chills, chest pain, SOB. OBJECTIVE: Vital Signs Period Temp Pulse Resp BP Sys/Johnson Pulse Ox Last 24 Hr 97.8 F-99.4 F 54-90 18-20 95-127/58-84 96-100 GENERAL: A&Ox3, NAD HEAD: NCAT EYES: PERRL, EOMI, sclera icteric ENT: Oropharynx clear without exudates, Jaundiced sublingual mucous membranes NECK: No JVD LUNGS: Breath sounds equal, clear to auscultation bilaterally, no wheezes HEART: Regular rate and rhythm, S1, S2 without murmur. ABDOMEN: Soft, nontender, nondistended, + bowel sounds, no guarding, no rebound , Negative murphys sign EXTREMITIES: 2+ pulses, no edema. NEUROLOGICAL: Cranial nerves II through XII grossly intact. Normal speech. No tremor, No asterixis. SKIN: Warm, dry. Macular, blanchable rash on the Torso and partially on the lower extremities Laboratory Results - last 24 hr WBC 9.6 K/mm3 (4.0-10.0) 05/10/18 07:10 RBC 4.00 M/mm3 (4.00-5.60) 05/10/18 07:10 Hgb 12.7 GM/dL (11.7-16.9) 05/10/18 07:10 Hct 38.0 % (35.4-49) 05/10/18 07:10 MCV 95.0 fl (80-96) 05/10/18 07:10 MCH 31.8 pg (25.7-33.7) 05/10/18 07:10 MCHC 33.5 g/dl (32.0-35.9) 05/10/18 07:10 RDW 14.8 % (11.9-15.9) 05/10/18 07:10 Plt Count 235 K/MM3 (134-434) D 05/10/18 07:10 MPV 9.9 fl (7.5-11.1) 05/10/18 07:10 Absolute Neuts (auto) 7.0 K/mm3 (1.5-8.0) 05/10/18 07:10 Neutrophils % 73.4 % (42.8-82.8) 05/10/18 07:10 Lymphocytes % 14.3 % (8-40) 05/10/18 07:10 Monocytes % 8.9 % (3.8-10.2) 05/10/18 07:10 Eosinophils % 2.1 % (0-4.5) 05/10/18 07:10 Basophils % 1.3 % (0-2.0) 05/10/18 07:10 Nucleated RBC % 0 % (0-0) 05/10/18 07:10 PT with INR 14.90 SEC (9.7-13.0) H 05/10/18 07:10 INR 1.26 (0.83-1.09) H 05/10/18 07:10 PTT (Actin FS) 35.3 SECONDS (25.2-36.5) 05/10/18 07:10 Sodium 134 mmol/L (136-145) L 05/10/18 07:10 Potassium 4.0 mmol/L (3.5-5.1) 05/10/18 07:10 Chloride 101 mmol/L (98-107) 05/10/18 07:10 Carbon Dioxide 26 mmol/L (21-32) 05/10/18 07:10 Anion Gap 7 MMOL/L (8-16) L 05/10/18 07:10 BUN 6 mg/dL (7-18) L 05/10/18 07:10 Creatinine 0.4 mg/dL (0.55-1.3) L 05/10/18 07:10 Creat Clearance w eGFR > 60 (>60) 05/10/18 07:10 Random Glucose 156 mg/dL (74-106) H 05/10/18 07:10 Calcium 8.3 mg/dL (8.5-10.1) L 05/10/18 07:10 Phosphorus 3.8 mg/dL (2.5-4.9) 05/10/18 07:10 Magnesium 2.0 mg/dL (1.8-2.4) 05/10/18 07:10 Total Bilirubin 6.7 mg/dL (0.2-1) H 05/10/18 07:10 Direct Bilirubin 5.1 mg/dL (0.0-0.2) H 05/10/18 07:10 AST 421 U/L (15-37) H 05/10/18 07:10 ALT 495 U/L (13-61) H 05/10/18 07:10 Alkaline Phosphatase 211 U/L (45-117) H 05/10/18 07:10 Ammonia 10.70 umol/L (11-32) L 05/10/18 11:20 Creatine Kinase 30 IU/L (26-308) 05/09/18 20:30 Troponin I 0.03 ng/ml (0.00-0.05) 05/09/18 20:30 Total Protein 6.5 g/dl (6.4-8.2) 05/10/18 07:10 Albumin 2.5 g/dl (3.4-5.0) L 05/10/18 07:10 Lipase 122 U/L (73-393) 05/09/18 20:30 Urine Color Hilary 05/10/18 02:26 Urine Appearance Clear 05/10/18 02:26 Urine pH 6.0 (5.0-8.0) 05/10/18 02:26 Ur Specific Boss 1.015 (1.010-1.035) 05/10/18 02:26 Urine Protein Negative (NEGATIVE) 05/10/18 02:26 Urine Glucose (UA) Negative (NEGATIVE) 05/10/18 02:26 Urine Ketones 1+ (NEGATIVE) H 05/10/18 02:26 Urine Blood Negative (NEGATIVE) 05/10/18 02:26 Urine Nitrite Negative (NEGATIVE) 05/10/18 02:26 Urine Bilirubin Negative (<2.0 mg/dL) 05/10/18 02:26 Urine Urobilinogen 2.0 mg/dL (0.2-1.0) 05/10/18 02:26 Ur Leukocyte Esterase Trace (NEGATIVE) 05/10/18 02:26 Urine WBC (Auto) 3 /hpf (3-5) 05/10/18 02:26 Urine RBC (Auto) <1 /hpf (0-3) 05/10/18 02:26 Ur Epithelial Cells Rare /HPF (FEW) 05/10/18 02:26 Urine Bacteria Rare /hpf (NONE SEEN) 05/10/18 02:26 Urine Mucus Rare 05/10/18 02:26 Acetaminophen < 2.0 ug/mL (10-30) L 05/09/18 20:30 Alcohol, Quantitative 43.5 mg/dL (0.0-5.0) H 05/09/18 20:30 HIV 1&2 Antibody Screen Negative 05/10/18 08:20 HIV P24 Antigen Negative 05/10/18 08:20 Active Medications Chlordiazepoxide HCl (Librium -) 50 mg PO [id number] ZAIDA Stop: 05/10/18 23:01 Last Admin: 05/10/18 16:53 Dose: 50 mg Folic Acid (Folic Acid -) 1 mg PO DAILY ZAIDA Dextrose/Sodium Chloride (D5-1/2ns -) 1,000 mls @ 83 mls/hr IV ASDIR ZAIDA Last Admin: 05/10/18 06:28 Dose: 83 mls/hr Ampicillin Sodium/Sulbactam (Sodium 3 gm/ Sodium Chloride) 100 mls @ 200 mls/ hr IVPB Q6H-IV ZAIDA Last Admin: 05/10/18 15:23 Dose: 200 mls/hr Lorazepam (Ativan Injection -) 0.5 mg IM Q6H PRN PRN Reason: WITHDRAWAL(CONT SUBST) Multivitamins/Minerals/Vitamin C (Tab-A-Vit -) 1 tab PO DAILY [facility] Thiamine HCl (Vitamin B1 -) 100 mg PO DAILY [facility] IMAGING: -CXR: No acute chest pathology. -Abdominal US: Thick-walled gallbladder with trace pericholecystic fluid. There is no evidence of cholelithiasis. The possibility of acute cholecystitis cannot be excluded. Hepatomegaly and diffuse fatty infiltration of the liver. -CT A/P with Contrast: Small amount of pericholecystic free fluid with mild enhancement of the gallbladder wall and without evidence of gallstones. Findings are suspicious for acute cholecystitis. -EKG: NORMAL SINUS RHYTHM, NORMAL ECG ASSESSMENT/PLAN: 33 y/o M with a PMHx of polysubstance abuse presented to [facility] with 3/10 epigastric pain accompanied by pruritic rash. 1. Transaminitis -Likely due to Alcohol Hepatitis given elevated LFTs, INR, blood Alcohol level; Less likely due to gallstone, Viral hepatitis -Abdominal US: No evidence of cholelithiasis. The possibility of acute cholecystitis cannot be excluded. -CT A/P with Contrast: Findings are suspicious for acute cholecystitis. -MRCP with Contrast pending to r/o common bile duct stone, tumors -General surgery (Dr. Trejo) consulted, Appreciate rec's -GI (Dr. Burkett) Consulted, Appreciate rec's, No role for for corticosteroid therapy at this time -LFTs trending down, continue to monitor -Hepatitis serology pending -Ammonia level noted -NPO -Continue on Ampicillin Sodium/Sulbactam (Started on 05/10) -Continue D5-1/2ns @ 83 mls/hr IV 2. Alcohol abuse -CIWA score trending down, was a 1 this morning -Continue Ativan PRN, Avoid librium as hepatotoxic -Continue Thiamine, Folic acid, Multivitamin -Continue D5-1/2ns @ 83 mls/hr IV -HIV testing -Urine Drug screen pending -Continue to monitor for signs of withdrawal, [place] 3. Elevated blood glucose -Will Check A1c 4. FEN -D5-1/2ns @ 83 mls/hr IV -Lytes wnl -NPO 5. PPx -DVT: SCDs, Heparin held for possible ERCP tmrw Dispo: Med-Surg Visit type - Emergency Visit Emergency Visit: Yes ED Registration Date: 05/10/18 Care time: The patient presented to the Emergency Department on the above date and was hospitalized for further evaluation of their emergent condition. - New Patient This patient is new to me today: No - Critical Care Critical Care patient: No - Discharge Referral Referred to [facility] Med P.C.: No
[2018-05-11] MEDS ORDERED: PT OWN MED DRAWER 7, Y5N ONE ×3 (01:49→20:40)
[2018-05-11] MEDS: AMPICILLIN NA/SULBACTAM NA 3 GM in SODIUM CHLORIDE 100 ML IVPB SCH ×4 (02:14→21:07)
[2018-05-11] MEDS ORDERED: chlordiazePOXIDE HCL 25 MG CAPSULE PO SCH (05:00)
[2018-05-11 06:06] LABS: HEP.C VIRUS AB >11.0 s/co ratio (0.0-0.9)
[2018-05-11] MEDS: DEXTROSE 5%-0.45% SALINE 1,000 ML IV SCH ×2 (06:55→11:28)
[2018-05-11 07:35] LABS: BASO % 1.9 % (0-2.0); EOS % 3.2 % (0-4.5); HEMOGLOBIN 13.7 GM/dL (11.7-16.9); LYMPH % 13.7 % (8-40); MCH 32.1 pg (25.7-33.7); MCHC 33.4 g/dl (32.0-35.9); MEAN PLT VOLUME 9.4 fl (7.5-11.1); MONO % 6.6 % (3.8-10.2); NEUT % 74.6 % (42.8-82.8); PLATELET COUNT 261 K/MM3 (134-434); RBC 4.27 M/mm3 (4.00-5.60); RDW 15.1 % (11.9-15.9); WHITE BLOOD COUNT 8.8 K/mm3 (4.0-10.0)
[2018-05-11 08:00] LABS: ALBUMIN 2.4 g/dl (3.4-5.0); ALK PHOS 185 U/L (45-117); ANION GAP 4 MMOL/L (8-16); BLOOD UREA NITROGEN 8 mg/dL (7-18); CALCIUM 8.5 mg/dL (8.5-10.1); CHLORIDE 104 mmol/L (98-107); CO2 25 mmol/L (21-32); CREATININE 0.4 mg/dL (0.55-1.3); GLUCOSE,RANDOM 203 mg/dL (74-106); MAGNESIUM 2.2 mg/dL (1.8-2.4); PHOSPHOROUS 4.2 mg/dL (2.5-4.9); POTASSIUM 3.9 mmol/L (3.5-5.1); SGOT/AST 511 U/L (15-37); SGPT/ALT 481 U/L (13-61); SODIUM 134 mmol/L (136-145); TOT PROT 6.8 g/dl (6.4-8.2)
[2018-05-11 10:46] LABS: BILIRUBIN,DIRECT 4.5 mg/dL (0.0-0.2)
[2018-05-11] MEDS: MULTIVITAMINS (DAILY MVI) TABLET (FP) PO SCH (11:17)
[2018-05-11] MEDS: FOLIC ACID 1 MG TABLET (FP) PO SCH (11:17)
--- NOTE | 2018-05-11 12:49 | PN ---
Teaching Attending Note Name of Resident: Verenice Russell ATTENDING PHYSICIAN STATEMENT I saw and evaluated the patient. I reviewed the resident's note and discussed the case with the resident. I agree with the resident's findings and plan as documented. SUBJECTIVE: Patient is feeling better with no acute distress. No nausea or vomiting, no shortness of breath. OBJECTIVE: Vital Signs Temperature 98.8 F 05/11/18 10:00 Pulse Rate 62 05/11/18 10:00 Respiratory Rate 18 05/11/18 10:00 Blood Pressure 104/65 05/11/18 10:00 O2 Sat by Pulse Oximetry (%) 98 05/10/18 21:00 GENERAL: A&Ox3, NAD HEAD: NCAT, NECK: No JVD EYES: PERRL, EOMI, sclera icteric ENT: Oropharynx clear without exudates. LUNGS: Breath sounds equal, clear to auscultation bilaterally, no wheezes HEART: Regular rate and rhythm, S1, S2 without murmur. ABDOMEN: Soft, nontender, nondistended, + bowel sounds, no guarding, no rebound. EXTREMITIES: 2+ pulses, no edema. NEUROLOGICAL: Cranial nerves II through XII grossly intact. Normal speech. No tremor, No asterixis. SKIN: Warm, dry. CBCD WBC 8.8 K/mm3 (4.0-10.0) 05/11/18 06:30 RBC 4.27 M/mm3 (4.00-5.60) 05/11/18 06:30 Hgb 13.7 GM/dL (11.7-16.9) 05/11/18 06:30 Hct 41.0 % (35.4-49) 05/11/18 06:30 MCV 96.0 fl (80-96) 05/11/18 06:30 MCHC 33.4 g/dl (32.0-35.9) 05/11/18 06:30 RDW 15.1 % (11.9-15.9) 05/11/18 06:30 Plt Count 261 K/MM3 (134-434) 05/11/18 06:30 MPV 9.4 fl (7.5-11.1) 05/11/18 06:30 CMP Sodium 134 mmol/L (136-145) L 05/11/18 06:30 Potassium 3.9 mmol/L (3.5-5.1) 05/11/18 06:30 Chloride 104 mmol/L (98-107) 05/11/18 06:30 Carbon Dioxide 25 mmol/L (21-32) 05/11/18 06:30 Anion Gap 4 MMOL/L (8-16) L 05/11/18 06:30 BUN 8 mg/dL (7-18) 05/11/18 06:30 Creatinine 0.4 mg/dL (0.55-1.3) L 05/11/18 06:30 Creat Clearance w eGFR > 60 (>60) 05/11/18 06:30 Random Glucose 203 mg/dL (74-106) H 05/11/18 06:30 Calcium 8.5 mg/dL (8.5-10.1) 05/11/18 06:30 Total Bilirubin 6.0 mg/dL (0.2-1) H 05/11/18 06:30 AST 511 U/L (15-37) H 05/11/18 06:30 ALT 481 U/L (13-61) H 05/11/18 06:30 Alkaline Phosphatase 185 U/L (45-117) H 05/11/18 06:30 Total Protein 6.8 g/dl (6.4-8.2) 05/11/18 06:30 Albumin 2.4 g/dl (3.4-5.0) L 05/11/18 06:30 CARDIAC ENZYMES Creatine Kinase 30 IU/L (26-308) 05/09/18 20:30 Troponin I 0.03 ng/ml (0.00-0.05) 05/09/18 20:30 Current Medications Generic Name Dose Route Start Last Admin Trade Name Sanam PRN Reason Stop Dose Admin Folic Acid 1 mg 05/11/18 10:00 05/11/18 11:17 Folic Acid - PO 1 mg DAILY [facility] Administration Dextrose/Sodium Chloride 1,000 mls @ 83 mls/hr 05/10/18 05:00 05/11/18 11:28 D5-1/2ns - IV 83 mls/hr ASDIR [facility] Administration Ampicillin Sodium/Sulbactam 100 mls @ 200 mls/hr 05/10/18 09:00 05/11/18 08: 36 Sodium 3 gm/ Sodium Chloride IVPB 200 mls/hr Q6H-IV [facility] Administration Lorazepam 0.5 mg 05/10/18 10:18 Ativan Injection - IM Q6H PRN WITHDRAWAL(CONT SUBST) Multivitamins/Minerals/Vitamin C 1 tab 05/11/18 10:00 05/11/18 11:17 Tab-A-Vit - PO 1 tab DAILY [facility] Administration Thiamine HCl 100 mg 05/11/18 10:00 Vitamin B1 - PO DAILY [facility] Home Medications Medication Instructions Recorded NK [No Known Home Medication] 05/09/18 ASSESSMENT AND PLAN: 33 y/o man with h/o Alcohol abuse who presented with abd pain and jaundice x 2 weeks and was found to have transaminitis . # Acute Transaminitis: will trend, most lkely due to alcoholic hepatitis, MRCP check for pancreatic pathology. Discriminant function 17.3 , which indicate no need for steroids. # Possible acute cholecystitis on IV antibiotic Unasyn continue, continue IVF , full liquid diet. # ETOH dependency: no signs of withdrawal. on thiamine, folate, and MVT ,on PRN ativan due to LFTS abnormalities , monitor. # hyperglycemia: fasting glucose of 154. check A1c # Reported Having dark stool: jaime't r/o PUD/varices due to alcohol use . EGD as an outpatient. hemoglobin is stable. SCDs
[2018-05-11] MEDS: THIAMINE HCL 100 MG TABLET (FP) PO SCH (14:03)
--- NOTE | 2018-05-11 14:48 | PN ---
Physical Exam: SUBJECTIVE: Patient seen and examined this morning at bedside. No longer having episodes of abdominal pain, nausea or vomiting. Rash is still present however not as erythematous and patient says less itchiness. Denies fevers, chills, chest pain, SOB. OBJECTIVE: Vital Signs Period Temp Pulse Resp BP Sys/Johnson Pulse Ox Last 24 Hr 98.3 F-98.8 F 54-66 12-20 95-112/57-68 98 GENERAL: A&Ox3, NAD HEAD: NCAT EYES: PERRL, EOMI, scleral icteris is improving ENT: Oropharynx clear without exudates, Jaundiced sublingual mucous membranes NECK: No JVD LUNGS: Breath sounds equal, clear to auscultation bilaterally, no wheezes HEART: Regular rate and rhythm, S1, S2 without murmur. ABDOMEN: Soft, nontender, nondistended, + bowel sounds, no guarding, no rebound , Negative murphys sign EXTREMITIES: 2+ pulses, no edema. NEUROLOGICAL: Cranial nerves II through XII grossly intact. Normal speech. No tremor, No asterixis. SKIN: Warm, dry. Macular, blanchable rash on the Torso and partially on the lower extremities. Less prominent and improving today. Laboratory Results - last 24 hr 05/10/18 05/11/18 05/11/18 07:10 06:30 06:30 WBC 8.8 RBC 4.27 Hgb 13.7 Hct 41.0 MCV 96.0 MCH 32.1 MCHC 33.4 RDW 15.1 Plt Count 261 MPV 9.4 Absolute Neuts (auto) 6.6 Neutrophils % 74.6 Lymphocytes % 13.7 Monocytes % 6.6 Eosinophils % 3.2 Basophils % 1.9 Nucleated RBC % 0 Sodium 134 L Potassium 3.9 Chloride 104 Carbon Dioxide 25 Anion Gap 4 L BUN 8 Creatinine 0.4 L Creat Clearance w eGFR > 60 Random Glucose 203 H Calcium 8.5 Phosphorus 4.2 Magnesium 2.2 Total Bilirubin 6.0 H Direct Bilirubin 4.5 H AST 511 H ALT 481 H Alkaline Phosphatase 185 H Total Protein 6.8 Albumin 2.4 L Hepatitis A IgM Ab Negative Hep Bs Antigen Negative Hep B Core IgM Ab Negative Hepatitis C Antibody >11.0 H Microbiology 05/10/18 02:26 Urine - Urine Clean Catch Urine Culture - Final NO GROWTH OBTAINED Active Medications Folic Acid (Folic Acid -) 1 mg PO DAILY [facility] Last Admin: 05/11/18 11:17 Dose: 1 mg Dextrose/Sodium Chloride (D5-1/2ns -) 1,000 mls @ 83 mls/hr IV [facility] Last Admin: 05/11/18 11:28 Dose: 83 mls/hr Ampicillin Sodium/Sulbactam (Sodium 3 gm/ Sodium Chloride) 100 mls @ 200 mls/ hr IVPB Q6H-IV [facility] Last Admin: 05/11/18 14:34 Dose: 200 mls/hr Lorazepam (Ativan Injection -) 0.5 mg IM Q6H PRN PRN Reason: WITHDRAWAL(CONT SUBST) Multivitamins/Minerals/Vitamin C (Tab-A-Vit -) 1 tab PO DAILY [facility] Last Admin: 05/11/18 11:17 Dose: 1 tab Thiamine HCl (Vitamin B1 -) 100 mg PO DAILY [facility] Last Admin: 05/11/18 14:03 Dose: 100 mg IMAGING: -CXR: No acute chest pathology. -Abdominal US: Thick-walled gallbladder with trace pericholecystic fluid. There is no evidence of cholelithiasis. The possibility of acute cholecystitis cannot be excluded. Hepatomegaly and diffuse fatty infiltration of the liver. -CT A/P with Contrast: Small amount of pericholecystic free fluid with mild enhancement of the gallbladder wall and without evidence of gallstones. Findings are suspicious for acute cholecystitis. -EKG: NORMAL SINUS RHYTHM, NORMAL ECG -MRCP: No choledocholithiasis or pancreaticobiliary ductal dilatation seen. Tiny gallstone with mild gallbladder wall thickening and pericholecystic fluid. Findings are suggestive of acute cholecystitis in the right clinical setting. If indicated this can may be obtained for further evaluation. Slightly prominent pancreatic head with focal heterogeneous hypoenhancement on the arterial phase but with normalization on sequential imaging and no corresponding T1 or T2 signal abnormality nor restricted diffusion. This could be artifactual or could be secondary to focal abnormality such as focal pancreatitis or an occult lesion. No pancreatic ductal dilatation seen. Correlate with clinical history, LFTs and amylase lipase. Short-term follow-up MRI is recommended. Alternatively endoscopy with endoscopic ultrasound may be obtained for further evaluation. Heterogeneous arterial enhancement of the liver likely due to hepatocellular disease. 1.6 x 1.0 cm focus of ill-defined enhancement in the medial right hepatic dome adjacent to the intrahepatic portion of the IVC could represent focus of benign perfusion abnormality however underlying arterial enhancing lesion cannot be completely excluded. Correlate with patient's clinical history and alpha-fetoprotein level. Follow- up MRI is recommended. 1.3 cm inferior right hepatic lobe hemangioma. ASSESSMENT/PLAN: 33 y/o M with a PMHx of polysubstance abuse presented to [facility] with 3/10 epigastric pain accompanied by pruritic rash. 1. Transaminitis -Likely due to Alcohol Hepatitis given elevated LFTs, INR, blood Alcohol level; Less likely due to gallstone, Viral hepatitis -Abdominal US: No evidence of cholelithiasis. The possibility of acute cholecystitis cannot be excluded. -CT A/P with Contrast: Findings are suspicious for acute cholecystitis. -MRCP with Contrast pending to r/o common bile duct stone, tumors, Noted above -General surgery (Dr. Trejo) consulted, Appreciate rec's -GI (Dr. Bukrett) Consulted, Appreciate rec's, No role for for corticosteroid therapy at this time -LFTs trending down, continue to monitor -Ammonia level noted -NPO -Continue on Ampicillin Sodium/Sulbactam (Started on 05/10) -Continue D5-1/2ns @ 83 mls/hr IV -AFP and Hep C pending 2. Alcohol abuse -CIWA score 0 -Continue Ativan PRN, Avoid librium as hepatotoxic -Continue Thiamine, Folic acid, Multivitamin -Continue D5-1/2ns @ 83 mls/hr IV -HIV testing -Continue to monitor for signs of withdrawal, Wernickes 3. Elevated blood glucose -Will Check A1c 4. FEN -D5-1/2ns @ 83 mls/hr IV -Lytes wnl -NPO 5. PPx -DVT: SCDs, Heparin held for possible ERCP tmrw Dispo: Med-Surg Visit type - Emergency Visit Emergency Visit: Yes ED Registration Date: 05/10/18 Care time: The patient presented to the Emergency Department on the above date and was hospitalized for further evaluation of their emergent condition. - New Patient This patient is new to me today: No - Critical Care Critical Care patient: No
--- NOTE | 2018-05-11 18:40 | PN ---
GI Progress Note Subjective: No acute events No abdominal pain States being hungry - Objective Vital Signs: Vital Signs Temperature 98.7 F 05/11/18 16:45 Pulse Rate 61 05/11/18 16:45 Respiratory Rate 20 05/11/18 16:45 Blood Pressure 111/56 L 05/11/18 16:45 O2 Sat by Pulse Oximetry (%) 98 05/10/18 21:00 Constitutional: Calm Eyes: Yes: Sclera Icterus Cardiovascular: Yes: Regular Rate and Rhythm Respiratory: Yes: CTA Bilaterally Gastrointestinal Inspection: No: Distention ...Auscultate: Yes: Normoactive Bowel Sounds ...Palpate: No: Tenderness ...Percussion: No: Tympanitic Edema: No Neurological: Yes: Alert. No: Asterixis Labs: CBC, BMP 05/11/18 06:30 05/11/18 06:30 INR, PTT INR 1.26 (0.83-1.09) H 05/10/18 07:10 - ....Imaging MRI: Report Reviewed (Non dilated biliary tract without filling defect Small gallstone Slightly prominent pancreatic head: ? artifact vs. occult lesion 1.6 x 1.0cm illdefined enhancement right hepatic lobe. ? benign filling defect vs. lesion 1.3cm right hepatic lobe hemangioma. Thickened GB wall / peroicholecystic fluid) Problem List - Problems (1) Alcoholic hepatitis Assessment/Plan: Clinically asymptomatic. no encephalopathy. I suspect the gallbladder findings are reactive to acute hepatitis and reflect hypoalbuminemic state Advance diet. if tolerating, advance further. Hepatitis C Ab is positive. ? if acute hepatitis C with prodromal syndrome last week. would suspect a more significant transaminitis. ? continued Abx use. if there is concern, check HIDA Will need outpatient follow-up of the vague pancreatic and liver MRI reading described Check AFP tumor marker Check quantitative HCV PCR with reflex to genotype Code(s): K70.10 - ALCOHOLIC HEPATITIS WITHOUT ASCITES Qualifiers: Qualified Code(s): K70.10 - Alcoholic hepatitis without ascites
--- NOTE | 2018-05-11 20:46 | PN ---
Progress Note, Physician History of Present Illness: Pt with elevated LFTs, jaundice, pruritus, no gallstones on imaging but some inflammatory changes of gallbladder. MRCP done yesterday with MRI findings reviewed - one tiny stone noted, but also some subtle findings in liver and pancreas not fully characterized will need followup. Also one small hemangioma in liver. Labs positive for Hepatitis C, further studies pending. LFTs down slightly today but still elevated. Pt seen by GI as well, consult noted. Seen and examined in his bed, Adarsh Anton RN assisted with Maltese conversation. Pt reports feeling a bit better, with less itching. No significant abdominal pain. Tolerating po, advancing as tolerated. - Current Medication List Current Medications: Active Medications Folic Acid (Folic Acid -) 1 mg PO DAILY [facility] Last Admin: 05/11/18 11:17 Dose: 1 mg Dextrose/Sodium Chloride (D5-1/2ns -) 1,000 mls @ 83 mls/hr IV ASDIR [facility] Last Admin: 05/11/18 11:28 Dose: 83 mls/hr Ampicillin Sodium/Sulbactam (Sodium 3 gm/ Sodium Chloride) 100 mls @ 200 mls/ hr IVPB Q6H-IV [facility] Last Admin: 05/11/18 14:34 Dose: 200 mls/hr Lorazepam (Ativan Injection -) 0.5 mg IM Q6H PRN PRN Reason: WITHDRAWAL(CONT SUBST) Multivitamins/Minerals/Vitamin C (Tab-A-Vit -) 1 tab PO DAILY [facility] Last Admin: 05/11/18 11:17 Dose: 1 tab Thiamine HCl (Vitamin B1 -) 100 mg PO DAILY [facility] Last Admin: 05/11/18 14:03 Dose: 100 mg - Objective Vital Signs: Vital Signs Temperature 98.7 F 05/11/18 16:45 Pulse Rate 61 05/11/18 16:45 Respiratory Rate 20 05/11/18 16:45 Blood Pressure 111/56 L 05/11/18 16:45 O2 Sat by Pulse Oximetry (%) 98 05/10/18 21:00 Constitutional: Yes: Well Nourished, No Distress, Calm Eyes: Yes: EOM Intact, Sclera Icterus (less) HENT: Yes: Atraumatic, Normocephalic Gastrointestinal: Yes: Soft, Tenderness, Epigastrium (minimal). No: Distention , Tenderness, Rebound Musculoskeletal: No: Joint Stiffness, Joint Swelling Extremities: No: Cool, Cyanosis Integumentary: Yes: Jaundice (less), Rash (fading/less noticeable than on admission) Neurological: Yes: Alert, Oriented Labs: CBC, BMP 05/11/18 06:30 05/11/18 06:30 CMP Sodium 134 mmol/L (136-145) L 05/11/18 06:30 Potassium 3.9 mmol/L (3.5-5.1) 05/11/18 06:30 Chloride 104 mmol/L (98-107) 05/11/18 06:30 Carbon Dioxide 25 mmol/L (21-32) 05/11/18 06:30 Anion Gap 4 MMOL/L (8-16) L 05/11/18 06:30 BUN 8 mg/dL (7-18) 05/11/18 06:30 Creatinine 0.4 mg/dL (0.55-1.3) L 05/11/18 06:30 Creat Clearance w eGFR > 60 (>60) 05/11/18 06:30 Random Glucose 203 mg/dL (74-106) H 05/11/18 06:30 Calcium 8.5 mg/dL (8.5-10.1) 05/11/18 06:30 Phosphorus 4.2 mg/dL (2.5-4.9) 05/11/18 06:30 Magnesium 2.2 mg/dL (1.8-2.4) 05/11/18 06:30 Total Bilirubin 6.0 mg/dL (0.2-1) H 05/11/18 06:30 Direct Bilirubin 4.5 mg/dL (0.0-0.2) H 05/11/18 06:30 AST 511 U/L (15-37) H 05/11/18 06:30 ALT 481 U/L (13-61) H 05/11/18 06:30 Alkaline Phosphatase 185 U/L (45-117) H 05/11/18 06:30 Ammonia 10.70 umol/L (11-32) L 05/10/18 11:20 Total Protein 6.8 g/dl (6.4-8.2) 05/11/18 06:30 Albumin 2.4 g/dl (3.4-5.0) L 05/11/18 06:30 Abnormal Lab Results 05/10/18 05/11/18 07:10 06:30 Sodium 134 L Anion Gap 4 L Creatinine 0.4 L Random Glucose 203 H Total Bilirubin 6.0 H Direct Bilirubin 4.5 H AST 511 H ALT 481 H Alkaline Phosphatase 185 H Albumin 2.4 L Hepatitis C Antibody >11.0 H - ....Imaging MRI: Report Reviewed (tiny gallstone reported with some pericholecystic fluid and thickened wall, also liver and pancreas findings as noted in hpi, no ductal dilation), Image Reviewed (images personally reviewed - no apparent stones or biliary ductal dilation) Problem List - Problems (1) Hyperbilirubinemia Code(s): E80.6 - OTHER DISORDERS OF BILIRUBIN METABOLISM (2) Elevated transaminase level Code(s): R74.0 - NONSPEC ELEV OF LEVELS OF TRANSAMNS & LACTIC ACID DEHYDRGNSE (3) Abnormal AST and ALT Code(s): R74.8 - ABNORMAL LEVELS OF OTHER SERUM ENZYMES (4) Abnormal alkaline phosphatase test Code(s): R74.8 - ABNORMAL LEVELS OF OTHER SERUM ENZYMES (5) Alcohol induced fatty liver Code(s): K70.0 - ALCOHOLIC FATTY LIVER (6) Alcohol abuse with other alcohol-induced disorder Code(s): F10.188 - ALCOHOL ABUSE WITH OTHER ALCOHOL-INDUCED DISORDER (7) Cocaine abuse Code(s): F14.10 - COCAINE ABUSE, UNCOMPLICATED (8) Marijuana abuse Code(s): F12.10 - CANNABIS ABUSE, UNCOMPLICATED Assessment/Plan admitted to medicine doubt cholecystitis, gallbladder findings more likely reactive to hepatitis and liver pathology Hep C positive - further studies pending tolerating po trend labs GI consultation noted no indication for cholecystectomy at this time discussed diagnosis of hep C with patient, and that further management would be by medical and/or GI doctors, possibly ID also told him he would need follow up for MRI findings in liver and pancreas pt informed that Hep C can be contracted from and passed on through contact with blood, body fluids, sexual contact, transfusions and that he should be aware of this also emphasized that complete alcohol cessation was essential to staying healthy and that continuing to drink would likely kill him he is receptive to talking with SW/CM about resources for alcohol rehab/ cessation he is also in need of a primary care doctor on discharge and will need referral to same will defer ongoing management to medical and other specialists as appropriate Thank you for the opportunity to participate in the care of this patient.
[2018-05-12 00:12] LABS: HBSAG SCREEN Negative (Negative); HEP A AB, IGM Negative (Negative)
[2018-05-12] MEDS: DEXTROSE 5%-0.45% SALINE 1,000 ML IV SCH ×3 (02:21→16:35)
[2018-05-12] MEDS: AMPICILLIN NA/SULBACTAM NA 3 GM in SODIUM CHLORIDE 100 ML IVPB SCH ×4 (02:22→20:39)
[2018-05-12] MEDS ORDERED: chlordiazePOXIDE 5 MG CAPSULE PO SCH (05:00)
[2018-05-12 08:12] LABS: ALBUMIN 2.4 g/dl (3.4-5.0); ALK PHOS 180 U/L (45-117); ANION GAP 8 MMOL/L (8-16); BILIRUBIN,TOTAL 4.7 mg/dL (0.2-1); BLOOD UREA NITROGEN 7 mg/dL (7-18); CALCIUM 8.6 mg/dL (8.5-10.1); CHLORIDE 106 mmol/L (98-107); CO2 25 mmol/L (21-32); CREATININE 0.5 mg/dL (0.55-1.3); GLUCOSE,RANDOM 180 mg/dL (74-106); PHOSPHOROUS 4.4 mg/dL (2.5-4.9); POTASSIUM 3.9 mmol/L (3.5-5.1); SGOT/AST 383 U/L (15-37); SGPT/ALT 411 U/L (13-61); SODIUM 140 mmol/L (136-145); TOT PROT 6.6 g/dl (6.4-8.2)
[2018-05-12 09:52] LABS: HEP B CORE AB, TOT Negative
[2018-05-12] MEDS: MULTIVITAMINS (DAILY MVI) TABLET (FP) PO SCH (10:33)
[2018-05-12] MEDS: FOLIC ACID 1 MG TABLET (FP) PO SCH (10:33)
[2018-05-12] MEDS: THIAMINE HCL 100 MG TABLET (FP) PO SCH (10:33)
[2018-05-12] MEDS ORDERED: PT OWN MED DRAWER 7, Y5N ONE ×2 (15:34→20:12)
--- NOTE | 2018-05-12 17:36 | PN ---
Physical Exam: SUBJECTIVE: Patient seen and examined this morning at bedside. Complains of a single episode of Yellow liquid stool without any abdominal pain. No recurrent episodes. Able to tolerate dinner last night. Rash is resolving, most prominent over the lower abdomen. Continues to itch but denies any drainage or bleeding. Denies any fevers, chills, nausea, vomiting, chest pain or SOB. We discussed Alcohol cessation in detail however patient believes he is able to stop on his own and does not require outside interventions or assistance. OBJECTIVE: Vital Signs Period Temp Pulse Resp BP Sys/Johnson Pulse Ox Last 24 Hr 97.7 F-98.9 F 64-80 17-20 91-139/50-68 98-98 GENERAL: A&Ox3, NAD HEAD: NCAT EYES: PERRL, EOMI, scleral icteris is improving ENT: Oropharynx clear without exudates, Jaundiced sublingual mucous membranes NECK: No JVD LUNGS: Breath sounds equal, clear to auscultation bilaterally, no wheezes HEART: Regular rate and rhythm, S1, S2 without murmur. ABDOMEN: Soft, nontender, nondistended, + bowel sounds, no guarding, no rebound , Negative murphys sign EXTREMITIES: 2+ pulses, no edema. NEUROLOGICAL: Cranial nerves II through XII grossly intact. Normal speech. No tremor, No asterixis. SKIN: Warm, dry. Resolving Macular, blanchable rash most prominent overlying the lower Abdomen. Continues to improve. Laboratory Results - last 24 hr 05/09/18 05/12/18 05/12/18 20:30 06:30 06:30 Sodium 140 Potassium 3.9 Chloride 106 Carbon Dioxide 25 Anion Gap 8 BUN 7 Creatinine 0.5 L Creat Clearance w eGFR > 60 Random Glucose 180 H Hemoglobin A1c % 8.6 H Calcium 8.6 Phosphorus 4.4 Magnesium 2.0 Total Bilirubin 4.7 H AST 383 H ALT 411 H Alkaline Phosphatase 180 H Total Protein 6.6 Albumin 2.4 L Hep A IgM Ab Confirm Negative Hepatitis A Ab Total Positive H Hep Bs Antigen Negative Hep Bs Antibody Non reactive Hep B Core Total Ab Negative Microbiology 05/10/18 02:26 Urine - Urine Clean Catch Urine Culture - Final NO GROWTH OBTAINED Active Medications Folic Acid (Folic Acid -) 1 mg PO DAILY [facility] Last Admin: 05/12/18 10:33 Dose: 1 mg Dextrose/Sodium Chloride (D5-1/2ns -) 1,000 mls @ 83 mls/hr IV [facility] Last Admin: 05/12/18 16:35 Dose: 83 mls/hr Ampicillin Sodium/Sulbactam (Sodium 3 gm/ Sodium Chloride) 100 mls @ 200 mls/ hr IVPB Q6H-IV [facility] Last Admin: 05/12/18 15:34 Dose: 200 mls/hr Lorazepam (Ativan Injection -) 0.5 mg IM Q6H PRN PRN Reason: WITHDRAWAL(CONT SUBST) Multivitamins/Minerals/Vitamin C (Tab-A-Vit -) 1 tab PO DAILY [facility] Last Admin: 05/12/18 10:33 Dose: 1 tab Thiamine HCl (Vitamin B1 -) 100 mg PO DAILY [facility] Last Admin: 05/12/18 10:33 Dose: 100 mg IMAGING: -CXR: No acute chest pathology. -Abdominal US: Thick-walled gallbladder with trace pericholecystic fluid. There is no evidence of cholelithiasis. The possibility of acute cholecystitis cannot be excluded. Hepatomegaly and diffuse fatty infiltration of the liver. -CT A/P with Contrast: Small amount of pericholecystic free fluid with mild enhancement of the gallbladder wall and without evidence of gallstones. Findings are suspicious for acute cholecystitis. -EKG: NORMAL SINUS RHYTHM, NORMAL ECG -MRCP: No choledocholithiasis or pancreaticobiliary ductal dilatation seen. Tiny gallstone with mild gallbladder wall thickening and pericholecystic fluid. Findings are suggestive of acute cholecystitis in the right clinical setting. If indicated this can may be obtained for further evaluation. Slightly prominent pancreatic head with focal heterogeneous hypoenhancement on the arterial phase but with normalization on sequential imaging and no corresponding T1 or T2 signal abnormality nor restricted diffusion. This could be artifactual or could be secondary to focal abnormality such as focal pancreatitis or an occult lesion. No pancreatic ductal dilatation seen. Correlate with clinical history, LFTs and amylase lipase. Short-term follow-up MRI is recommended. Alternatively endoscopy with endoscopic ultrasound may be obtained for further evaluation. Heterogeneous arterial enhancement of the liver likely due to hepatocellular disease. 1.6 x 1.0 cm focus of ill-defined enhancement in the medial right hepatic dome adjacent to the intrahepatic portion of the IVC could represent focus of benign perfusion abnormality however underlying arterial enhancing lesion cannot be completely excluded. Correlate with patient's clinical history and alpha-fetoprotein level. Follow- up MRI is recommended. 1.3 cm inferior right hepatic lobe hemangioma. ASSESSMENT/PLAN: 33 y/o M with a PMHx of polysubstance abuse presented to [facility] with 3/10 epigastric pain accompanied by pruritic rash. 1. Transaminitis -Likely due to Alcohol Hepatitis given elevated LFTs, INR, blood Alcohol level; Less likely due to gallstone, Viral hepatitis -Abdominal US: No evidence of cholelithiasis. The possibility of acute cholecystitis cannot be excluded. -CT A/P with Contrast: Findings are suspicious for acute cholecystitis. -MRCP with Contrast pending to r/o common bile duct stone, tumors, Noted above -General surgery (Dr. Trejo) consulted, Appreciate rec's -GI (Dr. Burkett) Consulted, Appreciate rec's, No role for for corticosteroid therapy at this time -LFTs trending down, continue to monitor -Ammonia level noted -Full Liquid diet -Continue on Ampicillin Sodium/Sulbactam (Started on 05/10) -Continue D5-1/2ns @ 83 mls/hr IV -AFP and Hep C pending 2. Alcohol abuse -CIWA score 0 -Continue Ativan PRN, Avoid librium as hepatotoxic -Continue Thiamine, Folic acid, Multivitamin -Continue D5-1/2ns @ 83 mls/hr IV -HIV testing -Continue to monitor for signs of withdrawal, Wernickes 3. Diabetes Mellitus -A1c: 8.6% -Will need tighter glycemic control on discharge -Will need outpatiet follow up 4. FEN -D5-1/2ns @ 83 mls/hr IV -Lytes wnl -NPO 5. PPx -DVT: SCDs, Heparin held for possible ERCP tmrw Dispo: Med-Surg Visit type - Emergency Visit Emergency Visit: Yes ED Registration Date: 05/10/18 Care time: The patient presented to the Emergency Department on the above date and was hospitalized for further evaluation of their emergent condition. - New Patient This patient is new to me today: No - Critical Care Critical Care patient: No - Discharge Referral Referred to [facility] No
--- NOTE | 2018-05-12 20:13 | PN ---
Teaching Attending Note Name of Resident: Verenice Russell ATTENDING PHYSICIAN STATEMENT I saw and evaluated the patient. I reviewed the resident's note and discussed the case with the resident. I agree with the resident's findings and plan as documented. SUBJECTIVE: Patient is feeling better with no acute distress. OBJECTIVE: Vital Signs Temperature 97.8 F 05/12/18 17:59 Pulse Rate 72 05/12/18 17:59 Respiratory Rate 20 05/12/18 17:59 Blood Pressure 109/55 L 05/12/18 17:59 O2 Sat by Pulse Oximetry (%) 98 05/12/18 09:00 GENERAL: A&Ox3, NAD HEAD: NCAT, NECK: No JVD EYES: PERRL, EOMI, sclera icteric ENT: Oropharynx clear without exudates. LUNGS: Breath sounds equal, clear to auscultation bilaterally, no wheezes HEART: Regular rate and rhythm, S1, S2 without murmur. ABDOMEN: Soft, nontender, nondistended, + bowel sounds, no guarding, no rebound. EXTREMITIES: 2+ pulses, no edema. NEUROLOGICAL: Cranial nerves II through XII grossly intact. Normal speech. No tremor, No asterixis. SKIN: Warm, dry. Current Medications Generic Name Dose Route Start Last Admin Trade Name Freq PRN Reason Stop Dose Admin Folic Acid 1 mg 05/11/18 10:00 05/12/18 10:33 Folic Acid - PO 1 mg DAILY ZAIDA Administration Dextrose/Sodium Chloride 1,000 mls @ 83 mls/hr 05/10/18 05:00 05/12/18 16:35 D5-1/2ns - IV 83 mls/hr ASDIR ZAIDA Administration Ampicillin Sodium/Sulbactam 100 mls @ 200 mls/hr 05/10/18 09:00 05/12/18 15: 34 Sodium 3 gm/ Sodium Chloride IVPB 200 mls/hr Q6H-IV ZAIDA Administration Lorazepam 0.5 mg 05/10/18 10:18 Ativan Injection - IM Q6H PRN WITHDRAWAL(CONT SUBST) Multivitamins/Minerals/Vitamin C 1 tab 05/11/18 10:00 05/12/18 10:33 Tab-A-Vit - PO 1 tab DAILY ZAIDA Administration Thiamine HCl 100 mg 05/11/18 10:00 05/12/18 10:33 Vitamin B1 - PO 100 mg DAILY ZAIDA Administration Home Medications Medication Instructions Recorded NK [No Known Home Medication] 05/09/18 Laboratory Tests 05/09/18 05/10/18 05/10/18 20:30 07:10 08:20 Hepatitis A IgM Ab Negative Hep A IgM Ab Confirm Negative Hepatitis A Ab Total Positive H Hep Bs Antigen Negative Negative Hep Bs Antibody Non reactive Hep B Core Total Ab Negative Hepatitis C Antibody >11.0 H HCV Quantitation Hepatitis C RNA HIV 1&2 Antibody Screen Negative HIV P24 Antigen Negative 05/12/18 06:30 Hepatitis A IgM Ab Hep A IgM Ab Confirm Hepatitis A Ab Total Hep Bs Antigen Hep Bs Antibody Hep B Core Total Ab Hepatitis C Antibody HCV Quantitation Pending Hepatitis C RNA Pending HIV 1&2 Antibody Screen HIV P24 Antigen MRI of the abdomen before and after the intravenous administration of contrast were performed on a high field 1.5 Flor GE magnet. Axial and coronal T2 fat-sat , axial T1 (in and out of phase), axial T2 FIESTA, axial T1 fat sat - LAVA prior to contrast and postcontrast administration (45 seconds, 80 seconds, 3 minutes, 5 minutes and 10 minutes delay) in addition to coronal postcontrast LAVA and axial diffusion weighted images were performed. Axial and coronal thin and thick slab 3 D MRCP was performed. 14 cc of ProHance was administered intravenously No comparison MRI is available. Correlation is made with CT of the abdomen and pelvis dated May 10, 2018 and ultrasound dated May 09, 2018 FINDINGS: There is minimal bibasilar dependent lung atelectasis. The visualized inferior mediastinum is grossly unremarkable The liver is normal in size with no evidence of abnormal loss of signal on out of phase imaging to suggest fatty infiltration. The liver demonstrate heterogeneous arterial enhancement with delayed normalization of flow likely due to hepatocellular disease. There is a 1.6 x 1.0 cm focus of ill- defined arterial enhancement in the medial right hepatic dome adjacent to the intrahepatic portion of the IVC but with no corresponding T2 signal abnormality or restricted diffusion. There is a 1.3 cm right hepatic lobe T1 hypointense and T2 hyperintense lesion demonstrating progressive filling of contrast on sequential imaging suggestive of hemangioma. The spleen is normal in size with no evidence of focal abnormal signal or abnormal enhancing lesions. The pancreatic head is prominent with heterogeneous faint hypoenhancement as compared to the remainder of the pancreatic tissue on the arterial phase and isoenhancement to the remainder of the pancreatic tissue on the sequential postcontrast images. No corresponding T2 signal abnormality or restricted diffusion seen. There is no pancreatic ductal dilatation. The gallbladder is distended containing a tiny stone best appreciated on the coronal MRCP images. There is mild gallbladder wall thickening and pericholecystic fluid. The CBD is normal in caliber with no evidence of filling defects. There is no intrahepatic biliary ductal dilatation. The adrenal glands are unremarkable. The kidneys are symmetrically enhancing with no evidence of enhancing lesions. There is no hydronephrosis. There is no evidence of abdominal lymphadenopathy or abdominal ascites. There are no abnormally dilated bowel loops. The visualized osseous structures are grossly unremarkable. IMPRESSION: No choledocholithiasis or pancreaticobiliary ductal dilatation seen. Tiny gallstone with mild gallbladder wall thickening and pericholecystic fluid. Findings are suggestive of acute cholecystitis in the right clinical setting. If indicated this can may be obtained for further evaluation. Slightly prominent pancreatic head with focal heterogeneous hypoenhancement on the arterial phase but with normalization on sequential imaging and no corresponding T1 or T2 signal abnormality nor restricted diffusion. This could be artifactual or could be secondary to focal abnormality such as focal pancreatitis or an occult lesion. No pancreatic ductal dilatation seen. Correlate with clinical history, LFTs and amylase lipase. Short-term follow-up MRI is recommended. Alternatively endoscopy with endoscopic ultrasound may be obtained for further evaluation. Heterogeneous arterial enhancement of the liver likely due to hepatocellular disease. 1.6 x 1.0 cm focus of ill-defined enhancement in the medial right hepatic dome adjacent to the intrahepatic portion of the IVC could represent focus of benign perfusion abnormality however underlying arterial enhancing lesion cannot be completely excluded. Correlate with patient's clinical history and alpha-fetoprotein level. Follow-up MRI is recommended. 1.3 cm inferior right hepatic lobe hemangioma. Reported By: Luciano Squires MD 05/11/18 132 Technologist: Randy Villalta Transcribed Date/Time: 05/11/181324 [employer] Captain: Luciano Squires Printed Date/Time: By: ASSESSMENT AND PLAN: Patient is a 33 y/o man with h/o Alcohol abuse who presented with abd pain and jaundice x 2 weeks and was found to have transaminitis . # Acute Transaminitis trending down, will continue to trend , possible due to alcoholic hepatitis, MRCP as above. Discriminant function 17.3 , which indicate no need for steroids. # Possible acute cholecystitis on IV antibiotic Unasyn continue, continue IVF , full liquid diet. Gi on the case appreciated # ETOH dependency: no signs of withdrawal. on thiamine, folate, and MVT continue # hyperglycemia: fasting glucose of 154. check A1c 8.6 # Reported Having dark stool: jaime't r/o PUD/varices due to alcohol use . EGD as an outpatient. hemoglobin is stable. SCDs Laboratory Tests 05/09/18 05/10/18 05/10/18 20:30 07:10 08:20 Hemoglobin A1c % Tumor Marker AFP Hepatitis A IgM Ab Negative Hep A IgM Ab Confirm Negative Hepatitis A Ab Total Positive H Hep Bs Antigen Negative Negative Hep Bs Antibody Non reactive Hep B Core Total Ab Negative Hepatitis C Antibody >11.0 H HCV Quantitation Hepatitis C RNA HIV 1&2 Antibody Screen Negative HIV P24 Antigen Negative 05/12/18 05/12/18 06:30 06:30 Hemoglobin A1c % 8.6 H Tumor Marker AFP 47.9 H Hepatitis A IgM Ab Hep A IgM Ab Confirm Hepatitis A Ab Total Hep Bs Antigen Hep Bs Antibody Hep B Core Total Ab Hepatitis C Antibody HCV Quantitation Pending Hepatitis C RNA Pending HIV 1&2 Antibody Screen HIV P24 Antigen
--- NOTE | 2018-05-12 21:11 | PN ---
Progress Note (short form) - Note Progress Note: Improving LFTs without intervention Await HCV PCR Problem List - Problems (1) Alcoholic hepatitis Code(s): K70.10 - ALCOHOLIC HEPATITIS WITHOUT ASCITES Qualifiers: Ascites presence: without ascites Qualified Code(s): K70.10 - Alcoholic hepatitis without ascites
[2018-05-13] MEDS ORDERED: PT OWN MED DRAWER 7, Y5N ONE ×3 (02:46→20:18)
[2018-05-13] MEDS: AMPICILLIN NA/SULBACTAM NA 3 GM in SODIUM CHLORIDE 100 ML IVPB SCH ×4 (02:57→20:29)
[2018-05-13] MEDS ORDERED: chlordiazePOXIDE 5 MG CAPSULE PO SCH (05:00)
[2018-05-13] MEDS: DEXTROSE 5%-0.45% SALINE 1,000 ML IV SCH (06:14)
[2018-05-13 07:38] LABS: EOS % 3.2 % (0-4.5); HEMATOCRIT 38.5 % (35.4-49); HEMOGLOBIN 12.7 GM/dL (11.7-16.9); LYMPH % 20.2 % (8-40); MCH 31.7 pg (25.7-33.7); MEAN PLT VOLUME 9.4 fl (7.5-11.1); MONO % 8.2 % (3.8-10.2); NEUT % 66.4 % (42.8-82.8); PLATELET COUNT 263 K/MM3 (134-434); RBC 4.01 M/mm3 (4.00-5.60); RDW 14.9 % (11.9-15.9); WHITE BLOOD COUNT 8.6 K/mm3 (4.0-10.0)
[2018-05-13 07:57] LABS: ALBUMIN 2.5 g/dl (3.4-5.0); ALK PHOS 175 U/L (45-117); ANION GAP 8 MMOL/L (8-16); BILIRUBIN,TOTAL 4.5 mg/dL (0.2-1); BLOOD UREA NITROGEN 6 mg/dL (7-18); CALCIUM 8.7 mg/dL (8.5-10.1); CHLORIDE 106 mmol/L (98-107); CO2 24 mmol/L (21-32); CREATININE 0.5 mg/dL (0.55-1.3); GLUCOSE,RANDOM 189 mg/dL (74-106); MAGNESIUM 2.1 mg/dL (1.8-2.4); PHOSPHOROUS 4.5 mg/dL (2.5-4.9); POTASSIUM 4.2 mmol/L (3.5-5.1); SGOT/AST 317 U/L (15-37); SGPT/ALT 368 U/L (13-61); SODIUM 138 mmol/L (136-145); TOT PROT 6.8 g/dl (6.4-8.2)
[2018-05-13] MEDS: THIAMINE HCL 100 MG TABLET (FP) PO SCH (09:50)
[2018-05-13] MEDS: MULTIVITAMINS (DAILY MVI) TABLET (FP) PO SCH (09:50)
[2018-05-13] MEDS: FOLIC ACID 1 MG TABLET (FP) PO SCH (09:50)
--- NOTE | 2018-05-13 12:08 | CONSULT ---
Consultation: REQUESTING PROVIDER: CONSULT REQUEST: We have been asked to medically evaluate this patient for elevated AFP and transaminitis. HISTORY OF PRESENT ILLNESS: 33 y/o M with PMHx of substance abuse who presented to ED 05/09/18 c/o epigastric pain 3/10 in severity, intense itchying on his upper extremities, abdomen, and left knee, and "yellowing of his eyes" which began 2 weeks ago. Rash has been present for approximately 2 days. Pain has been present for 1 week. Denies constipation, bloody stool, chest pain, shortness of breath, dysuria, frequency, urgency or hematuria. Recent Travel: denies PAST MEDICAL HISTORY: Substance abuse-Alcohol, cocaine. PAST SURGICAL HISTORY: Denies Social History: Smoking: Smokes Marijuana currently Alcohol: Consumes 5/6 beers/day. on weekends he drinks >20 beers/day. Drugs: Cocaine use approximately once/week in past. 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 Family History: Mother and Father alive (NIDDM both), No history of Cancer or chirrohsis in family. REVIEW OF SYSTEMS: CONSTITUTIONAL: Absent: fever, chills, diaphoresis, generalized weakness, malaise, loss of appetite, weight change HEENT: Absent: rhinorrhea, nasal congestion, throat pain, throat swelling, difficulty swallowing, mouth swelling, ear pain, eye pain, visual changes CARDIOVASCULAR: Absent: chest pain, syncope, palpitations, irregular heart rate, lightheadedness , peripheral edema RESPIRATORY: Absent: cough, shortness of breath, dyspnea with exertion, orthopnea, wheezing, stridor, hemoptysis GASTROINTESTINAL: Absent: abdominal pain, abdominal distension, nausea, vomiting, diarrhea, constipation, melena, hematochezia GENITOURINARY: Absent: dysuria, frequency, urgency, hesitancy, hematuria, flank pain, genital pain MUSCULOSKELETAL: Absent: myalgia, arthralgia, joint swelling, back pain, neck pain SKIN: Absent: rash, itching, pallor HEMATOLOGIC/IMMUNOLOGIC: Absent: easy bleeding, easy bruising, lymphadenopathy, frequent infections ENDOCRINE: Absent: unexplained weight gain, unexplained weight loss, heat intolerance, cold intolerance NEUROLOGIC: Absent: headache, focal weakness or paresthesias, dizziness, unsteady gait, seizure, mental status changes, bladder or bowel incontinence PSYCHIATRIC: Absent: anxiety, depression, suicidal or homicidal ideation, hallucinations. PHYSICAL EXAMINATION Vital Signs - 24 hr 05/12/18 05/12/18 05/12/18 15:09 17:59 21:00 Temperature 98.9 F 97.8 F 99 F Pulse Rate 80 72 70 Respiratory 17 20 20 Rate Blood Pressure 139/68 109/55 L 106/54 L O2 Sat by Pulse 98 Oximetry (%) 05/13/18 06:44 Temperature 98.7 F Pulse Rate 53 L Respiratory 18 Rate Blood Pressure 96/48 L O2 Sat by Pulse Oximetry (%) GENERAL: A&Ox3, NAD HEAD: NCAT, NECK: No JVD EYES: PERRL, EOMI, sclera icteric ENT: Oropharynx clear without exudates. LUNGS: Breath sounds equal, clear to auscultation bilaterally, no wheezes HEART: Regular rate and rhythm, S1, S2 without murmur. ABDOMEN: Soft, nontender, nondistended, + bowel sounds, no guarding, no rebound. MALE GENITAL: no masses or tenderness. EXTREMITIES: 2+ pulses, no edema. NEUROLOGICAL: Cranial nerves II through XII grossly intact. Normal speech. No tremor, No asterixis. SKIN: Warm, dry. Laboratory Results - last 24 hr 05/12/18 05/13/18 05/13/18 06:30 06:50 06:50 WBC 8.6 RBC 4.01 Hgb 12.7 Hct 38.5 MCV 96.0 MCH 31.7 MCHC 33.0 RDW 14.9 Plt Count 263 MPV 9.4 Absolute Neuts (auto) 5.7 Neutrophils % 66.4 Lymphocytes % 20.2 D Monocytes % 8.2 Eosinophils % 3.2 Basophils % 2.0 Nucleated RBC % 0 Sodium 138 Potassium 4.2 Chloride 106 Carbon Dioxide 24 Anion Gap 8 BUN 6 L Creatinine 0.5 L Creat Clearance w eGFR > 60 Random Glucose 189 H Calcium 8.7 Phosphorus 4.5 Magnesium 2.1 Total Bilirubin 4.5 H AST 317 H ALT 368 H Alkaline Phosphatase 175 H Total Protein 6.8 Albumin 2.5 L Tumor Marker AFP 47.9 H Active Medications Generic Name Dose Route Start Last Admin Trade Name Freq PRN Reason Stop Dose Admin Folic Acid 1 mg 05/11/18 10:00 05/13/18 09:50 Folic Acid - PO 1 mg DAILY ZAIDA Administration Dextrose/Sodium Chloride 1,000 mls @ 83 mls/hr 05/10/18 05:00 05/13/18 06:14 D5-1/2ns - IV 83 mls/hr ASDIR ZAIDA Administration Ampicillin Sodium/Sulbactam 100 mls @ 200 mls/hr 05/10/18 09:00 05/13/18 09: 50 Sodium 3 gm/ Sodium Chloride IVPB 200 mls/hr Q6H-IV ZAIDA Administration Multivitamins/Minerals/Vitamin C 1 tab 05/11/18 10:00 05/13/18 09:50 Tab-A-Vit - PO 1 tab DAILY ZAIDA Administration Thiamine HCl 100 mg 05/11/18 10:00 05/13/18 09:50 Vitamin B1 - PO 100 mg DAILY ZAIDA Administration ASSESSMENT/PLAN: 33 y/o M with PMHx of substance abuse who presented to ED 05/09/18 c/o epigastric pain 3/10 in severity, intense itchying on his upper extremities, abdomen, and left knee, and "yellowing of his eyes" which began 2 weeks ago. Admitted for acute alcoholic hepatitis. Found to have elevated AFP. Dispo: We will continue to follow the patient. Thank you for this consultative opportunity. Problem List - Problems (1) Elevated AFP Assessment/Plan: * Elevated serum AFP may be seen in patients with chronic liver disease such as acute or chronic viral hepatitis, but without HCC * Awaiting HCV PCR, HCV Abs (+) * Testicular exam was normal as well as non-seminomas can cause rise in AFP * Will send for CA 19-9 * MRI show 1.6x1.0 ill defined focus of enhancement in medial right hepatic dome adjacent to intrahepatic portion of IVC and abnormalities in pancreas * Spoke with Dr. Gonzalez he states that these finding are non-specific and that this can be handled one of two ways; * Follow up MRI in 2 mo. or EUS to evaluate better the pancreas. (2) Alcohol abuse with other alcohol-induced disorder (3) Alcoholic hepatitis (4) Cholecystitis Visit type - Emergency Visit Emergency Visit: Yes ED Registration Date: 05/10/18 Care time: The patient presented to the Emergency Department on the above date and was hospitalized for further evaluation of their emergent condition. - New Patient This patient is new to me today: Yes Date on this admission: 05/13/18 - Critical Care Critical Care patient: No
--- NOTE | 2018-05-13 15:14 | PN ---
GI Progress Note Subjective: No acute events No abdominal pain - Objective Vital Signs: Vital Signs Temperature 98.7 F 05/13/18 14:26 Pulse Rate 78 05/13/18 14:26 Respiratory Rate 19 05/13/18 14:26 Blood Pressure 135/68 05/13/18 14:26 O2 Sat by Pulse Oximetry (%) 98 05/13/18 09:00 Constitutional: Calm Eyes: Yes: Sclera Icterus Cardiovascular: Yes: Regular Rate and Rhythm Respiratory: Yes: CTA Bilaterally Gastrointestinal Inspection: No: Distention ...Auscultate: Yes: Normoactive Bowel Sounds ...Palpate: No: Tenderness ...Percussion: No: Tympanitic Edema: No (No LE edema) Neurological: Yes: Alert, Asterixis Labs: CBC, BMP 05/13/18 06:50 05/13/18 06:50 INR, PTT INR 1.26 (0.83-1.09) H 05/10/18 07:10 Laboratory Tests 05/10/18 05/12/18 07:10 06:30 Tumor Marker AFP 47.9 H Hepatitis A IgM Ab Negative Hep Bs Antigen Negative Hep B Core IgM Ab Negative Hepatitis C Antibody >11.0 H HCV Quantitation Pending Hepatitis C RNA Pending Problem List - Problems (1) Alcoholic hepatitis Assessment/Plan: Liver chemistries show slow improvement Nurse Tanika aided in [place] interpretation. Explained to him that active hepatitis C cannot be excluded at this time. Explained to him that hepatitis C can be spread through blood contact and that he should keep his razor, tooth brush away from his family. I also advised that he should discuss things with his close contacts and have them tested as well. Also, I explained that he had an elevated tumor marker that can be seen in liver cancer. I explained that the level of elevation was not diagnostic of liver cancer however with the MRI findings, he will need continued evaluation after discharge. I stressed the need for abstinence from alcohol and illicit drugs. Code(s): K70.10 - ALCOHOLIC HEPATITIS WITHOUT ASCITES Qualifiers: Ascites presence: without ascites Qualified Code(s): K70.10 - Alcoholic hepatitis without ascites
--- NOTE | 2018-05-13 17:18 | PN ---
Teaching Attending Note Name of Resident: Keenan Max ATTENDING PHYSICIAN STATEMENT I saw and evaluated the patient. I reviewed the resident's note and discussed the case with the resident. I agree with the resident's findings and plan as documented. SUBJECTIVE: Patient seen and examined Heavy beer consumption with binge drinking of 20+ beers on week-ends. Marijuana - once weekly. Prior snorting of cocaine Presents withelevated AFP of 47 with non specific arterial phase abnormalities in liver and pancreas. As discussed careful f/u with MRI in 2 monts or EUS of pancreas for further assessment. Nothing obvious on testicualr exam. OBJECTIVE: ASSESSMENT AND PLAN:
--- NOTE | 2018-05-13 19:00 | PN ---
Physical Exam: SUBJECTIVE: Patient seen and examined this morning at bedside. Rash is resolving , most prominent over the lower abdomen however continues to itch. Denies any abdominal pain, nausea vomiting. He complains this AM of headache, sharp, 6/10, over the left temporal region, that worsens with light. Denies any fevers, chills, chest pain or SOB. We discussed Alcohol cessation in detail again however patient continues to say he is able to stop on his own and does not require outside interventions or assistance. I have mentioned multiple times that resources are available and Social work/natural resources technician here in the hospital can make arrangements. OBJECTIVE: Vital Signs Period Temp Pulse Resp BP Sys/Johnson Pulse Ox Last 24 Hr 98.2 F-99 F 53-80 18-20 96-135/48-68 98-98 GENERAL: A&Ox3, NAD HEAD: NCAT EYES: PERRL, EOMI, scleral icteris is improving ENT: Oropharynx clear without exudates, Jaundiced sublingual mucous membranes NECK: No JVD LUNGS: Breath sounds equal, clear to auscultation bilaterally, no wheezes HEART: Regular rate and rhythm, S1, S2 without murmur. ABDOMEN: Soft, nontender, nondistended, + bowel sounds, no guarding, no rebound , Negative murphys sign : Left testicle hangs lower compared to right. No scrotal skin rash, tears or erythema noted. No Swelling, lumps or loss of rugae present. No tenderness or masses palpated. EXTREMITIES: 2+ pulses, no edema. NEUROLOGICAL: Cranial nerves II through XII grossly intact. Normal speech. No tremor, No asterixis. SKIN: Warm, dry. Resolving Macular, blanchable rash most prominent overlying the lower Abdomen. Continues to improve. Laboratory Results - last 24 hr 05/12/18 05/13/18 05/13/18 06:30 06:50 06:50 WBC 8.6 RBC 4.01 Hgb 12.7 Hct 38.5 MCV 96.0 MCH 31.7 MCHC 33.0 RDW 14.9 Plt Count 263 MPV 9.4 Absolute Neuts (auto) 5.7 Neutrophils % 66.4 Lymphocytes % 20.2 D Monocytes % 8.2 Eosinophils % 3.2 Basophils % 2.0 Nucleated RBC % 0 Sodium 138 Potassium 4.2 Chloride 106 Carbon Dioxide 24 Anion Gap 8 BUN 6 L Creatinine 0.5 L Creat Clearance w eGFR > 60 Random Glucose 189 H Calcium 8.7 Phosphorus 4.5 Magnesium 2.1 Total Bilirubin 4.5 H AST 317 H ALT 368 H Alkaline Phosphatase 175 H Total Protein 6.8 Albumin 2.5 L Tumor Marker AFP 47.9 H Active Medications Folic Acid (Folic Acid -) 1 mg PO DAILY [facility] Last Admin: 05/13/18 09:50 Dose: 1 mg Dextrose/Sodium Chloride (D5-1/2ns -) 1,000 mls @ 83 mls/hr IV ASDIR [facility] Last Admin: 05/13/18 06:14 Dose: 83 mls/hr Ampicillin Sodium/Sulbactam (Sodium 3 gm/ Sodium Chloride) 100 mls @ 200 mls/ hr IVPB Q6H-IV [facility] Last Admin: 05/13/18 15:11 Dose: 200 mls/hr Multivitamins/Minerals/Vitamin C (Tab-A-Vit -) 1 tab PO DAILY [facility] Last Admin: 05/13/18 09:50 Dose: 1 tab Thiamine HCl (Vitamin B1 -) 100 mg PO DAILY [facility] Last Admin: 05/13/18 09:50 Dose: 100 mg IMAGING: -CXR: No acute chest pathology. -Abdominal US: Thick-walled gallbladder with trace pericholecystic fluid. There is no evidence of cholelithiasis. The possibility of acute cholecystitis cannot be excluded. Hepatomegaly and diffuse fatty infiltration of the liver. -CT A/P with Contrast: Small amount of pericholecystic free fluid with mild enhancement of the gallbladder wall and without evidence of gallstones. Findings are suspicious for acute cholecystitis. -EKG: NORMAL SINUS RHYTHM, NORMAL ECG -MRCP: No choledocholithiasis or pancreaticobiliary ductal dilatation seen. Tiny gallstone with mild gallbladder wall thickening and pericholecystic fluid. Findings are suggestive of acute cholecystitis in the right clinical setting. If indicated this can may be obtained for further evaluation. Slightly prominent pancreatic head with focal heterogeneous hypoenhancement on the arterial phase but with normalization on sequential imaging and no corresponding T1 or T2 signal abnormality nor restricted diffusion. This could be artifactual or could be secondary to focal abnormality such as focal pancreatitis or an occult lesion. No pancreatic ductal dilatation seen. Correlate with clinical history, LFTs and amylase lipase. Short-term follow-up MRI is recommended. Alternatively endoscopy with endoscopic ultrasound may be obtained for further evaluation. Heterogeneous arterial enhancement of the liver likely due to hepatocellular disease. 1.6 x 1.0 cm focus of ill-defined enhancement in the medial right hepatic dome adjacent to the intrahepatic portion of the IVC could represent focus of benign perfusion abnormality however underlying arterial enhancing lesion cannot be completely excluded. Correlate with patient's clinical history and alpha-fetoprotein level. Follow- up MRI is recommended. 1.3 cm inferior right hepatic lobe hemangioma. ASSESSMENT/PLAN: 33 y/o M with a PMHx of polysubstance abuse presented to [facility] with 3/10 epigastric pain accompanied by pruritic rash. 1. Transaminitis -Likely due to Alcohol Hepatitis given elevated LFTs, INR, blood Alcohol level; Consider Viral hepatitis also -Hepatitis C Antibody positive, Quantitative PCR pending -Abdominal US: No evidence of cholelithiasis. The possibility of acute cholecystitis cannot be excluded. -CT A/P with Contrast: Findings are suspicious for acute cholecystitis. -MRCP with Contrast pending to r/o common bile duct stone, tumors, Noted above -General surgery (Dr. Trejo) consulted, Appreciate rec's -GI (Dr. Burkett) Consulted, Appreciate rec's, No role for for corticosteroid therapy at this time -LFTs trending down, continue to monitor -Ammonia level noted -Full Liquid diet -Continue on Ampicillin Sodium/Sulbactam (Started on 05/10) -Continue D5-1/2ns @ 83 mls/hr IV 2. Elevated AFP -AFP 47.9 -Hepatitis C Antibody positive, Quantitative PCR pending -Hematology (Dr. Reese) Consulted, Appreciate Rec's -CA 19-9 Pending -Will need follow up MRI in 2 months or Endoscopic Ultrasound to evaluate better the pancreas. 3. Alcohol abuse -CIWA score 0 -Completed Ativan Protocol, Avoid librium as hepatotoxic -Continue Thiamine, Folic acid, Multivitamin -Continue D5-1/2ns @ 83 mls/hr IV -HIV testing -Continue to monitor for signs of withdrawal, [place] -Will need aviation manager and Social work to provide him with resources for Alcohol rehab 4. Diabetes Mellitus -A1c: 8.6% -Will need tighter glycemic control on discharge -Will need outpatient follow up 5. FEN -D5-1/2ns @ 83 mls/hr IV -Lytes wnl -NPO 6. PPx -DVT: early ambulation Dispo: Med-Surg Visit type - Emergency Visit Emergency Visit: Yes ED Registration Date: 05/10/18 Care time: The patient presented to the Emergency Department on the above date and was hospitalized for further evaluation of their emergent condition. - New Patient This patient is new to me today: No - Critical Care Critical Care patient: No - Discharge Referral Referred to [facility] Med P.C.: No
--- NOTE | 2018-05-13 19:23 | PN ---
Teaching Attending Note Name of Resident: Verenice Russell ATTENDING PHYSICIAN STATEMENT I saw and evaluated the patient. I reviewed the resident's note and discussed the case with the resident. I agree with the resident's findings and plan as documented. SUBJECTIVE: Patient is comfortable with no acute distress. OBJECTIVE: Vital Signs Temperature 98.2 F 05/13/18 17:18 Pulse Rate 80 05/13/18 17:18 Respiratory Rate 18 05/13/18 17:18 Blood Pressure 107/62 05/13/18 17:18 O2 Sat by Pulse Oximetry (%) 98 05/13/18 09:00 GENERAL: A&Ox3, NAD HEAD: NCAT, NECK: No JVD EYES: PERRL, EOMI, sclera icteric ENT: Oropharynx clear without exudates. LUNGS: Breath sounds equal, clear to auscultation bilaterally, no wheezes HEART: Regular rate and rhythm, S1, S2 without murmur. ABDOMEN: Soft, nontender, nondistended, + bowel sounds, no guarding, no rebound. EXTREMITIES: 2+ pulses, no edema. NEUROLOGICAL: Cranial nerves II through XII grossly intact. Normal speech. No tremor, No asterixis. SKIN: Warm, dry. : as per resident no testicular mass is appreciated CBCD WBC 8.6 K/mm3 (4.0-10.0) 05/13/18 06:50 RBC 4.01 M/mm3 (4.00-5.60) 05/13/18 06:50 Hgb 12.7 GM/dL (11.7-16.9) 05/13/18 06:50 Hct 38.5 % (35.4-49) 05/13/18 06:50 MCV 96.0 fl (80-96) 05/13/18 06:50 MCHC 33.0 g/dl (32.0-35.9) 05/13/18 06:50 RDW 14.9 % (11.9-15.9) 05/13/18 06:50 Plt Count 263 K/MM3 (134-434) 05/13/18 06:50 MPV 9.4 fl (7.5-11.1) 05/13/18 06:50 CMP Sodium 138 mmol/L (136-145) 05/13/18 06:50 Potassium 4.2 mmol/L (3.5-5.1) 05/13/18 06:50 Chloride 106 mmol/L (98-107) 05/13/18 06:50 Carbon Dioxide 24 mmol/L (21-32) 05/13/18 06:50 Anion Gap 8 MMOL/L (8-16) 05/13/18 06:50 BUN 6 mg/dL (7-18) L 05/13/18 06:50 Creatinine 0.5 mg/dL (0.55-1.3) L 05/13/18 06:50 Creat Clearance w eGFR > 60 (>60) 05/13/18 06:50 Random Glucose 189 mg/dL (74-106) H 05/13/18 06:50 Calcium 8.7 mg/dL (8.5-10.1) 05/13/18 06:50 Total Bilirubin 4.5 mg/dL (0.2-1) H 05/13/18 06:50 AST 317 U/L (15-37) H 05/13/18 06:50 ALT 368 U/L (13-61) H 05/13/18 06:50 Alkaline Phosphatase 175 U/L (45-117) H 05/13/18 06:50 Total Protein 6.8 g/dl (6.4-8.2) 05/13/18 06:50 Albumin 2.5 g/dl (3.4-5.0) L 05/13/18 06:50 CARDIAC ENZYMES Creatine Kinase 30 IU/L (26-308) 05/09/18 20:30 Troponin I 0.03 ng/ml (0.00-0.05) 05/09/18 20:30 Current Medications Generic Name Dose Route Start Last Admin Trade Name Sanam PRN Reason Stop Dose Admin Folic Acid 1 mg 05/11/18 10:00 05/13/18 09:50 Folic Acid - PO 1 mg DAILY ZAIDA Administration Dextrose/Sodium Chloride 1,000 mls @ 83 mls/hr 05/10/18 05:00 05/13/18 06:14 D5-1/2ns - IV 83 mls/hr ASDIR ZAIDA Administration Ampicillin Sodium/Sulbactam 100 mls @ 200 mls/hr 05/10/18 09:00 05/13/18 15: 11 Sodium 3 gm/ Sodium Chloride IVPB 200 mls/hr Q6H-IV ZAIDA Administration Multivitamins/Minerals/Vitamin C 1 tab 05/11/18 10:00 05/13/18 09:50 Tab-A-Vit - PO 1 tab DAILY ZAIDA Administration Thiamine HCl 100 mg 05/11/18 10:00 05/13/18 09:50 Vitamin B1 - PO 100 mg DAILY ZAIDA Administration Home Medications Medication Instructions Recorded NK [No Known Home Medication] 05/09/18 IMPRESSION: No choledocholithiasis or pancreaticobiliary ductal dilatation seen. Tiny gallstone with mild gallbladder wall thickening and pericholecystic fluid. Findings are suggestive of acute cholecystitis in the right clinical setting. If indicated this can may be obtained for further evaluation. Slightly prominent pancreatic head with focal heterogeneous hypoenhancement on the arterial phase but with normalization on sequential imaging and no corresponding T1 or T2 signal abnormality nor restricted diffusion. This could be artifactual or could be secondary to focal abnormality such as focal pancreatitis or an occult lesion. No pancreatic ductal dilatation seen. Correlate with clinical history, LFTs and amylase lipase. Short-term follow-up MRI is recommended. Alternatively endoscopy with endoscopic ultrasound may be obtained for further evaluation. Heterogeneous arterial enhancement of the liver likely due to hepatocellular disease. 1.6 x 1.0 cm focus of ill-defined enhancement in the medial right hepatic dome adjacent to the intrahepatic portion of the IVC could represent focus of benign perfusion abnormality however underlying arterial enhancing lesion cannot be completely excluded. Correlate with patient's clinical history and alpha-fetoprotein level. Follow- up MRI is recommended. 1.3 cm inferior right hepatic lobe hemangioma. Reported By: Luciano Squires MD 05/11/18 1325 Technologist: Randy Villalta Transcribed Date/Time: 05/11/181324 Research Physicist: Luciano Squires Printed Date/Time ASSESSMENT AND PLAN: Patient is a 33 y/o man with h/o Alcohol abuse who presented with abd pain and jaundice x 2 weeks and was found to have transaminitis . # Acute Transaminitis continue to trend possible due to alcoholic hepatitis, MRCP as above. will advance the diet. # Alcohol dependency with Marijuana with hx of Cocaine abstinence discussed. #1.3 cm inferior right hepatic lobe hemangioma with positive for Hep C , with elevated alpha protein 47, Hem onc on the case careful f/u with MRI in 2 months or EUS of pancreas for further assessment. # Possible acute cholecystitis on IV antibiotic Unasyn continue, continue IVF, full liquid diet. Gi on the case appreciated # ETOH dependency: no signs of withdrawal. on thiamine, folate, and MVT continue # hyperglycemia: fasting glucose of 154. check A1c 8.6 # Reported Having dark stool: jaime't r/o PUD/varices due to alcohol use . EGD as an outpatient. hemoglobin is stable. SCDs Laboratory Tests 05/12/18 06:30 Hemoglobin A1c % 8.6 H Laboratory Tests 05/09/18 05/10/18 05/10/18 20:30 07:10 08:20 Hemoglobin A1c % Hepatitis A IgM Ab Negative Hep A IgM Ab Confirm Negative Hepatitis A Ab Total Positive H Hep Bs Antigen Negative Negative Hep Bs Antibody Non reactive Hep B Core Total Ab Negative Hep B Core IgM Ab Negative Hepatitis C Antibody >11.0 H HCV Quantitation Hepatitis C RNA HIV 1&2 Antibody Screen Negative HIV P24 Antigen Negative 05/12/18 05/12/18 06:30 06:30 Hemoglobin A1c % 8.6 H Hepatitis A IgM Ab Hep A IgM Ab Confirm Hepatitis A Ab Total Hep Bs Antigen Hep Bs Antibody Hep B Core Total Ab Hep B Core IgM Ab Hepatitis C Antibody HCV Quantitation Pending Hepatitis C RNA Pending HIV 1&2 Antibody Screen HIV P24 Antigen
[2018-05-14] MEDS ORDERED: PT OWN MED DRAWER 7, Y5N ONE ×3 (02:44→15:15)
[2018-05-14] MEDS: AMPICILLIN NA/SULBACTAM NA 3 GM in SODIUM CHLORIDE 100 ML IVPB SCH ×4 (03:05→21:18)
[2018-05-14] MEDS: DEXTROSE 5%-0.45% SALINE 1,000 ML IV SCH (03:05)
[2018-05-14 07:52] LABS: BASO % 2.2 % (0-2.0); EOS % 3.4 % (0-4.5); HEMATOCRIT 37.1 % (35.4-49); HEMOGLOBIN 12.6 GM/dL (11.7-16.9); LYMPH % 26.8 % (8-40); MCH 32.8 pg (25.7-33.7); MEAN CELL VOLUME 96.4 fl (80-96); MEAN PLT VOLUME 9.6 fl (7.5-11.1); MONO % 8.2 % (3.8-10.2); NEUT % 59.4 % (42.8-82.8); PLATELET COUNT 261 K/MM3 (134-434); RBC 3.85 M/mm3 (4.00-5.60); RDW 14.7 % (11.9-15.9); WHITE BLOOD COUNT 8.2 K/mm3 (4.0-10.0)
[2018-05-14 08:31] LABS: ALBUMIN 2.6 g/dl (3.4-5.0); ALK PHOS 178 U/L (45-117); ANION GAP 8 MMOL/L (8-16); BILIRUBIN,TOTAL 3.7 mg/dL (0.2-1); BLOOD UREA NITROGEN 5 mg/dL (7-18); CALCIUM 8.5 mg/dL (8.5-10.1); CHLORIDE 105 mmol/L (98-107); CO2 27 mmol/L (21-32); CREATININE 0.6 mg/dL (0.55-1.3); GLUCOSE,RANDOM 197 mg/dL (74-106); MAGNESIUM 2.3 mg/dL (1.8-2.4); PHOSPHOROUS 4.5 mg/dL (2.5-4.9); POTASSIUM 4.1 mmol/L (3.5-5.1); SGOT/AST 232 U/L (15-37); SGPT/ALT 328 U/L (13-61); SODIUM 140 mmol/L (136-145); TOT PROT 6.9 g/dl (6.4-8.2)
--- NOTE | 2018-05-14 08:33 | PN ---
Progress Note, Physician Chief Complaint: (Covering for Dr. Burkett) Patient denies any abdominal pain / nausea/ vomiting ; states he is feeling better Admits to alcohol abuse denies any new meds / herbal supplements prior to admission. NO history of liver disease/ - Current Medication List Current Medications: Active Medications Folic Acid (Folic Acid -) 1 mg PO DAILY [facility] Last Admin: 05/13/18 09:50 Dose: 1 mg Dextrose/Sodium Chloride (D5-1/2ns -) 1,000 mls @ 83 mls/hr IV ASDIR ZAIDA Last Admin: 05/14/18 03:05 Dose: 83 mls/hr Ampicillin Sodium/Sulbactam (Sodium 3 gm/ Sodium Chloride) 100 mls @ 200 mls/ hr IVPB Q6H-IV [facility] Last Admin: 05/14/18 03:05 Dose: 200 mls/hr Multivitamins/Minerals/Vitamin C (Tab-A-Vit -) 1 tab PO DAILY [facility] Last Admin: 05/13/18 09:50 Dose: 1 tab Thiamine HCl (Vitamin B1 -) 100 mg PO DAILY [facility] Last Admin: 05/13/18 09:50 Dose: 100 mg - Objective Vital Signs: Vital Signs Temperature 97.5 F L 05/14/18 06:31 Pulse Rate 54 L 05/14/18 06:31 Respiratory Rate 20 05/14/18 06:31 Blood Pressure 92/54 L 05/14/18 06:31 O2 Sat by Pulse Oximetry (%) 97 05/13/18 21:00 Constitutional: Yes: Well Nourished Eyes: Yes: Sclera Icterus HENT: Yes: WNL Neck: Yes: WNL Cardiovascular: Yes: WNL Respiratory: Yes: WNL Gastrointestinal: Yes: WNL, Normal Bowel Sounds, Soft Musculoskeletal: Yes: WNL Extremities: Yes: WNL Edema: No Labs: CBC, BMP 05/14/18 06:30 05/14/18 06:30 INR, PTT INR 1.26 (0.83-1.09) H 05/10/18 07:10 Problem List - Problems (1) Abnormal AST and ALT Assessment/Plan: - bilirubin has peaked and is downtrending at this time. HCV quant is pending. I suspect his acute hepatitis is secondary to etoh abuse; He may also have underlying HCV that is chronic. trend lft / inr qd while hospitalized diet as tolerated complete the course of abx for ? cholecystitis outpt EUS to further evaluate the liver surgery f/u Code(s): R74.8 - ABNORMAL LEVELS OF OTHER SERUM ENZYMES (2) Alcoholic hepatitis Code(s): K70.10 - ALCOHOLIC HEPATITIS WITHOUT ASCITES Qualifiers: Ascites presence: without ascites Qualified Code(s): K70.10 - Alcoholic hepatitis without ascites (3) Elevated AFP Code(s): R77.2 - ABNORMALITY OF ALPHAFETOPROTEIN
[2018-05-14] MEDS: MULTIVITAMINS (DAILY MVI) TABLET (FP) PO SCH (10:21)
[2018-05-14] MEDS: THIAMINE HCL 100 MG TABLET (FP) PO SCH (10:21)
[2018-05-14] MEDS: FOLIC ACID 1 MG TABLET (FP) PO SCH (10:21)
[2018-05-14] MEDS ORDERED: hydrOXYzine HCL 10 MG TABLET PO PRN (15:41)
--- NOTE | 2018-05-14 15:42 | PN ---
Progress Note, Physician Chief Complaint: itching and jaundice - Current Medication List Current Medications: Active Medications Folic Acid (Folic Acid -) 1 mg PO DAILY [facility] Last Admin: 05/14/18 10:21 Dose: 1 mg Hydroxyzine HCl (Atarax -) 10 mg PO Q6H PRN PRN Reason: FOR ITCHING Dextrose/Sodium Chloride (D5-1/2ns -) 1,000 mls @ 83 mls/hr IV ASDIR [facility] Last Admin: 05/14/18 03:05 Dose: 83 mls/hr Ampicillin Sodium/Sulbactam (Sodium 3 gm/ Sodium Chloride) 100 mls @ 200 mls/ hr IVPB Q6H-IV [facility] Last Admin: 05/14/18 15:17 Dose: 200 mls/hr Multivitamins/Minerals/Vitamin C (Tab-A-Vit -) 1 tab PO DAILY [facility] Last Admin: 05/14/18 10:21 Dose: 1 tab Thiamine HCl (Vitamin B1 -) 100 mg PO DAILY [facility] Last Admin: 05/14/18 10:21 Dose: 100 mg - Objective Vital Signs: Vital Signs Temperature 99.2 F 05/14/18 14:13 Pulse Rate 86 05/14/18 14:13 Respiratory Rate 20 05/14/18 14:13 Blood Pressure 112/69 05/14/18 14:13 O2 Sat by Pulse Oximetry (%) 97 05/14/18 09:00 Constitutional: Yes: Well Nourished, No Distress, Calm, Other (jaundiced) Eyes: Yes: WNL, EOM Intact, Sclera Icterus HENT: Yes: WNL, Atraumatic, Normocephalic Neck: Yes: WNL, Supple, Trachea Midline Cardiovascular: Yes: WNL, Regular Rate and Rhythm, S1, S2 Respiratory: Yes: WNL, Regular, CTA Bilaterally Gastrointestinal: Yes: WNL, Normal Bowel Sounds, Soft, Hepatomegaly ...Rectal Exam: Yes: Deferred Genitourinary: Yes: Other (no testicular mass appreciated on exam) Musculoskeletal: Yes: WNL Extremities: Yes: WNL Edema: No Integumentary: Yes: WNL Wound/Incision: Yes: Clean/Dry, Well Approximated Neurological: Yes: WNL, Alert, Oriented Labs: CBC, BMP 05/14/18 06:30 05/14/18 06:30 INR, PTT INR 1.26 (0.83-1.09) H 05/10/18 07:10 Problem List - Problems (1) Liver mass Code(s): R16.0 - HEPATOMEGALY, NOT ELSEWHERE CLASSIFIED (2) Abnormal AST and ALT Code(s): R74.8 - ABNORMAL LEVELS OF OTHER SERUM ENZYMES (3) Alcohol abuse with other alcohol-induced disorder Code(s): F10.188 - ALCOHOL ABUSE WITH OTHER ALCOHOL-INDUCED DISORDER (4) Alcoholic hepatitis Code(s): K70.10 - ALCOHOLIC HEPATITIS WITHOUT ASCITES Qualifiers: Ascites presence: without ascites Qualified Code(s): K70.10 - Alcoholic hepatitis without ascites (5) Elevated AFP Code(s): R77.2 - ABNORMALITY OF ALPHAFETOPROTEIN (6) Jaundice Code(s): R17 - UNSPECIFIED JAUNDICE Assessment/Plan Patient is a 33 y/o man with h/o Alcohol abuse who presented with abd pain and jaundice x 2 weeks and was found to have transamenases . # Acute elevated in tranamenases continue to trend possible due to alcoholic hepatitis, MRCP as above. will advance the diet. # Alcohol dependency with Marijuana with hx of Cocaine abstinence discussed. #1.3 cm inferior right hepatic lobe hemangioma with positive for Hep C , with elevated alpha protein 47, Hem onc on the case careful f/u with MRI in 2 months or EUS of pancreas for further assessment. # Possible acute cholecystitis on IV antibiotic Unasyn continue, continue IVF, full liquid diet. Gi on the case appreciated # ETOH dependency: no signs of withdrawal. on thiamine, folate, and MVT continue # hyperglycemia: fasting glucose of 154. check A1c 8.6 # Reported Having dark stool: jaime't r/o PUD/varices due to alcohol use . EGD as an outpatient. hemoglobin is stable. SCDs Laboratory Tests
[2018-05-15] MEDS: AMPICILLIN NA/SULBACTAM NA 3 GM in SODIUM CHLORIDE 100 ML IVPB SCH ×4 (02:02→23:36)
[2018-05-15] MEDS ORDERED: PT OWN MED DRAWER 7, Y5N ONE ×3 (10:08→22:35)
[2018-05-15] MEDS: THIAMINE HCL 100 MG TABLET (FP) PO SCH (10:10)
[2018-05-15] MEDS: FOLIC ACID 1 MG TABLET (FP) PO SCH (10:10)
[2018-05-15] MEDS: MULTIVITAMINS (DAILY MVI) TABLET (FP) PO SCH (10:10)
[2018-05-15] MEDS: DEXTROSE 5%-0.45% SALINE 1,000 ML IV SCH (10:11)
[2018-05-15 10:29] LABS: BASO % 2.1 % (0-2.0); EOS % 3.8 % (0-4.5); HEMATOCRIT 38.6 % (35.4-49); HEMOGLOBIN 12.6 GM/dL (11.7-16.9); LYMPH % 22.1 % (8-40); MCH 32.3 pg (25.7-33.7); MCHC 32.7 g/dl (32.0-35.9); MEAN CELL VOLUME 98.9 fl (80-96); MEAN PLT VOLUME 9.6 fl (7.5-11.1); MONO % 7.1 % (3.8-10.2); NEUT % 64.9 % (42.8-82.8); PLATELET COUNT 242 K/MM3 (134-434); RDW 14.6 % (11.9-15.9); WHITE BLOOD COUNT 7.9 K/mm3 (4.0-10.0)
[2018-05-15 10:55] LABS: INR 1.32 (0.83-1.09); PROTHROMBIN TIME (PATIENT) 15.6 SEC (9.7-13.0)
[2018-05-15 11:14] LABS: ALBUMIN 2.7 g/dl (3.4-5.0); ALK PHOS 209 U/L (45-117); ANION GAP 3 MMOL/L (8-16); BILIRUBIN,TOTAL 2.8 mg/dL (0.2-1); BLOOD UREA NITROGEN 9 mg/dL (7-18); CALCIUM 8.5 mg/dL (8.5-10.1); CHLORIDE 101 mmol/L (98-107); CO2 25 mmol/L (21-32); CREATININE 0.7 mg/dL (0.55-1.3); MAGNESIUM 2.1 mg/dL (1.8-2.4); PHOSPHOROUS 3.7 mg/dL (2.5-4.9); POTASSIUM 4.1 mmol/L (3.5-5.1); SGOT/AST 151 U/L (15-37); SGPT/ALT 274 U/L (13-61); SODIUM 130 mmol/L (136-145)
[2018-05-15 11:31] LABS: GLUCOSE,RANDOM 418 mg/dL (74-106)
--- NOTE | 2018-05-15 11:50 | PN ---
Physical Exam: SUBJECTIVE: Patient seen and examined this morning at bedside. Rash continues to improve and itching improved. Denies any fevers, chills, chest pain, SOB, abdominal pain, nausea, vomiting. OBJECTIVE: Vital Signs Period Temp Pulse Resp BP Sys/Johnson Pulse Ox Last 24 Hr 98.3 F-99.2 F 59-86 20-20 90-112/34-69 97 GENERAL: A&Ox3, NAD HEAD: NCAT EYES: PERRL, EOMI, scleral icteris is improving ENT: Oropharynx clear without exudates NECK: No JVD LUNGS: Breath sounds equal, clear to auscultation bilaterally, no wheezes HEART: Regular rate and rhythm, S1, S2 without murmur. ABDOMEN: Soft, nontender, nondistended, + bowel sounds, no guarding, no rebound , Negative murphys sign : Left testicle hangs lower compared to right. No scrotal skin rash, tears or erythema noted. No Swelling, lumps or loss of rugae present. No tenderness or masses palpated. EXTREMITIES: 2+ pulses, no edema. NEUROLOGICAL: Cranial nerves II through XII grossly intact. Normal speech. No tremor, No asterixis. SKIN: Warm, dry. Resolving Macular, blanchable rash most prominent overlying the lower Abdomen. Continues to improve. Laboratory Results - last 24 hr 05/14/18 05/15/18 05/15/18 06:30 10:24 10:24 WBC 7.9 RBC 3.90 L Hgb 12.6 Hct 38.6 MCV 98.9 H MCH 32.3 MCHC 32.7 RDW 14.6 Plt Count 242 MPV 9.6 Absolute Neuts (auto) 5.1 Neutrophils % 64.9 Lymphocytes % 22.1 Monocytes % 7.1 Eosinophils % 3.8 Basophils % 2.1 H Nucleated RBC % 0 PT with INR 15.60 H INR 1.32 H Sodium Potassium Chloride Carbon Dioxide Anion Gap BUN Creatinine Creat Clearance w eGFR Random Glucose Calcium Phosphorus Magnesium Total Bilirubin AST ALT Alkaline Phosphatase Total Protein Albumin CA 19-9 Antigen 47 H 05/15/18 10:24 WBC RBC Hgb Hct MCV MCH MCHC RDW Plt Count MPV Absolute Neuts (auto) Neutrophils % Lymphocytes % Monocytes % Eosinophils % Basophils % Nucleated RBC % PT with INR INR Sodium 130 L Potassium 4.1 Chloride 101 Carbon Dioxide 25 Anion Gap 3 L BUN 9 Creatinine 0.7 Creat Clearance w eGFR > 60 Random Glucose 418 H* Calcium 8.5 Phosphorus 3.7 Magnesium 2.1 Total Bilirubin 2.8 H AST 151 H ALT 274 H Alkaline Phosphatase 209 H Total Protein 7.0 Albumin 2.7 L CA 19-9 Antigen Microbiology 05/10/18 02:26 Urine - Urine Clean Catch Urine Culture - Final NO GROWTH OBTAINED Active Medications Folic Acid (Folic Acid -) 1 mg PO DAILY [facility] Last Admin: 05/15/18 10:10 Dose: 1 mg Hydroxyzine HCl (Atarax -) 10 mg PO Q6H PRN PRN Reason: FOR ITCHING Dextrose/Sodium Chloride (D5-1/2ns -) 1,000 mls @ 83 mls/hr IV ASDIR [facility] Last Admin: 05/15/18 10:11 Dose: 83 mls/hr Ampicillin Sodium/Sulbactam (Sodium 3 gm/ Sodium Chloride) 100 mls @ 200 mls/ hr IVPB Q6H-IV [facility] Last Admin: 05/15/18 10:10 Dose: 200 mls/hr Insulin Aspart (Novolog Vial Sliding Scale -) 1 vial SQ ACHS [facility]; Protocol Multivitamins/Minerals/Vitamin C (Tab-A-Vit -) 1 tab PO DAILY [facility] Last Admin: 05/15/18 10:10 Dose: 1 tab Thiamine HCl (Vitamin B1 -) 100 mg PO DAILY [facility] Last Admin: 05/15/18 10:10 Dose: 100 mg IMAGING: -CXR: No acute chest pathology. -Abdominal US: Thick-walled gallbladder with trace pericholecystic fluid. There is no evidence of cholelithiasis. The possibility of acute cholecystitis cannot be excluded. Hepatomegaly and diffuse fatty infiltration of the liver. -CT A/P with Contrast: Small amount of pericholecystic free fluid with mild enhancement of the gallbladder wall and without evidence of gallstones. Findings are suspicious for acute cholecystitis. -EKG: NORMAL SINUS RHYTHM, NORMAL ECG -MRCP: No choledocholithiasis or pancreaticobiliary ductal dilatation seen. Tiny gallstone with mild gallbladder wall thickening and pericholecystic fluid. Findings are suggestive of acute cholecystitis in the right clinical setting. If indicated this can may be obtained for further evaluation. Slightly prominent pancreatic head with focal heterogeneous hypoenhancement on the arterial phase but with normalization on sequential imaging and no corresponding T1 or T2 signal abnormality nor restricted diffusion. This could be artifactual or could be secondary to focal abnormality such as focal pancreatitis or an occult lesion. No pancreatic ductal dilatation seen. Correlate with clinical history, LFTs and amylase lipase. Short-term follow-up MRI is recommended. Alternatively endoscopy with endoscopic ultrasound may be obtained for further evaluation. Heterogeneous arterial enhancement of the liver likely due to hepatocellular disease. 1.6 x 1.0 cm focus of ill-defined enhancement in the medial right hepatic dome adjacent to the intrahepatic portion of the IVC could represent focus of benign perfusion abnormality however underlying arterial enhancing lesion cannot be completely excluded. Correlate with patient's clinical history and alpha-fetoprotein level. Follow- up MRI is recommended. 1.3 cm inferior right hepatic lobe hemangioma. ASSESSMENT/PLAN: 33 y/o M with a PMHx of polysubstance abuse presented to [facility] with 3/10 epigastric pain accompanied by pruritic rash. 1. Transaminitis -Likely due to Alcohol Hepatitis given elevated LFTs, INR, blood Alcohol level; Consider Viral hepatitis also -Hepatitis C Antibody positive, Quantitative PCR pending -TBilirubin peaked, Down trending now -Abdominal US: No evidence of cholelithiasis. The possibility of acute cholecystitis cannot be excluded. -CT A/P with Contrast: Findings are suspicious for acute cholecystitis. -MRCP with Contrast pending to r/o common bile duct stone, tumors, Noted above -General surgery (Dr. Trejo) consulted, Appreciate rec's -GI (Dr. Burkett) Consulted, Appreciate rec's, No role for for corticosteroid therapy at this time -LFTs trending down, continue to monitor -Ammonia level noted -Continue on Ampicillin Sodium/Sulbactam (Started on 05/10) -Continue D5-1/2ns @ 83 mls/hr IV -Will Trend LFTs/INR daily -Continue Atarax 10 mg Q6H PRN for rash 2. Elevated AFP -AFP 47.9 -Hepatitis C Antibody positive, Quantitative PCR pending -Hematology (Dr. Reese) Consulted, Appreciate Rec's -CA 19-9 noted at 47 -Will need follow up MRI in 2 months or Endoscopic Ultrasound to evaluate better the pancreas. 3. Alcohol abuse -CIWA score 0 -Completed Ativan Protocol, Avoid librium as hepatotoxic -Continue Thiamine, Folic acid, Multivitamin -Continue D5-1/2ns @ 83 mls/hr IV -HIV testing -Continue to monitor for signs of withdrawal, [place] -Will need compensation consulting manager and Social work to provide him with resources for Alcohol rehab 4. Diabetes Mellitus -A1c: 8.6% -BGMs ISS ACHS -Will need tighter glycemic control on discharge -Will need outpatient follow up 5. FEN -D5-1/2ns @ 83 mls/hr IV -Lytes wnl -NPO 6. PPx -DVT: early ambulation Dispo: Med-Surg Visit type - Emergency Visit Emergency Visit: Yes ED Registration Date: 05/10/18 Care time: The patient presented to the Emergency Department on the above date and was hospitalized for further evaluation of their emergent condition. - New Patient This patient is new to me today: No - Critical Care Critical Care patient: No - Discharge Referral Referred to [facility] Med P.C.: No
[2018-05-15] MEDS ORDERED: INSULIN SLIDING SCALE (NOVOLOG) 1 VIAL SQ SCH (16:30)
[2018-05-15] MEDS: INSULIN SLIDING SCALE (NOVOLOG) 1 VIAL SQ SCH ×2 (17:17→23:43)
[2018-05-16] MEDS ORDERED: PT OWN MED DRAWER 7, Y5N ONE ×5 (02:40→14:43)
[2018-05-16] MEDS: AMPICILLIN NA/SULBACTAM NA 3 GM in SODIUM CHLORIDE 100 ML IVPB SCH ×3 (02:51→14:27)
[2018-05-16] MEDS ORDERED: INSULIN (NOVOLOG) ASPART 100 UNITS/ML 10ML VIAL ONE (06:08)
[2018-05-16] MEDS: INSULIN SLIDING SCALE (NOVOLOG) 1 VIAL SQ SCH ×3 (06:29→17:33)
[2018-05-16] MEDS: DEXTROSE 5%-0.45% SALINE 1,000 ML IV SCH ×2 (06:30→11:26)
[2018-05-16 07:05] LABS: BASO % 2.3 % (0-2.0); EOS % 4.7 % (0-4.5); HEMATOCRIT 41.9 % (35.4-49); HEMOGLOBIN 13.9 GM/dL (11.7-16.9); LYMPH % 24.7 % (8-40); MCH 32.4 pg (25.7-33.7); MCHC 33.1 g/dl (32.0-35.9); MEAN CELL VOLUME 97.7 fl (80-96); MEAN PLT VOLUME 9.4 fl (7.5-11.1); MONO % 6.3 % (3.8-10.2); PLATELET COUNT 257 K/MM3 (134-434); RBC 4.28 M/mm3 (4.00-5.60); RDW 14.9 % (11.9-15.9); WHITE BLOOD COUNT 8.2 K/mm3 (4.0-10.0)
[2018-05-16 07:22] LABS: ALBUMIN 3.1 g/dl (3.4-5.0); ALK PHOS 204 U/L (45-117); ANION GAP 10 MMOL/L (8-16); BILIRUBIN,TOTAL 3.2 mg/dL (0.2-1); BLOOD UREA NITROGEN 10 mg/dL (7-18); CHLORIDE 104 mmol/L (98-107); CO2 27 mmol/L (21-32); CREATININE 0.7 mg/dL (0.55-1.3); GLUCOSE,RANDOM 206 mg/dL (74-106); PHOSPHOROUS 4.2 mg/dL (2.5-4.9); POTASSIUM 3.7 mmol/L (3.5-5.1); SGOT/AST 149 U/L (15-37); SGPT/ALT 268 U/L (13-61); SODIUM 140 mmol/L (136-145); TOT PROT 7.8 g/dl (6.4-8.2)
[2018-05-16] MEDS: MULTIVITAMINS (DAILY MVI) TABLET (FP) PO SCH (10:14)
[2018-05-16] MEDS: FOLIC ACID 1 MG TABLET (FP) PO SCH (10:14)
[2018-05-16] MEDS: THIAMINE HCL 100 MG TABLET (FP) PO SCH (10:14)
--- NOTE | 2018-05-16 11:40 | PN ---
Physical Exam: SUBJECTIVE: Patient seen and examined at bedside. No overnight events. No new complaints. Denies CP,CLEMENTS, SOB, abdominal pain, nausea or vomiting. OBJECTIVE: Vital Signs Period Temp Pulse Resp BP Sys/Johnson Pulse Ox Last 24 Hr 97.6 F-98.3 F 58-103 18-20 94-107/51-61 GENERAL: A&Ox3, NAD HEAD: NCAT, NECK: No JVD EYES: PERRL, EOMI, sclera icteric ENT: Oropharynx clear without exudates. LUNGS: Breath sounds equal, clear to auscultation bilaterally, no wheezes HEART: Regular rate and rhythm, S1, S2 without murmur. ABDOMEN: Soft, nontender, nondistended, + bowel sounds, no guarding, no rebound. MALE GENITAL: no masses or tenderness. EXTREMITIES: 2+ pulses, no edema. NEUROLOGICAL: Cranial nerves II through XII grossly intact. Normal speech. No tremor, No asterixis. SKIN: Warm, dry. Laboratory Results - last 24 hr 05/15/18 05/15/18 05/16/18 12:15 17:07 06:00 WBC 8.2 RBC 4.28 Hgb 13.9 Hct 41.9 MCV 97.7 H MCH 32.4 MCHC 33.1 RDW 14.9 Plt Count 257 MPV 9.4 Absolute Neuts (auto) 5.1 Neutrophils % 62.0 Lymphocytes % 24.7 Monocytes % 6.3 Eosinophils % 4.7 H Basophils % 2.3 H Nucleated RBC % 0 Sodium Potassium Chloride Carbon Dioxide Anion Gap BUN Creatinine Creat Clearance w eGFR POC Glucometer 355 320 Random Glucose Calcium Phosphorus Magnesium Total Bilirubin AST ALT Alkaline Phosphatase Total Protein Albumin 05/16/18 05/16/18 06:00 06:26 WBC RBC Hgb Hct MCV MCH MCHC RDW Plt Count MPV Absolute Neuts (auto) Neutrophils % Lymphocytes % Monocytes % Eosinophils % Basophils % Nucleated RBC % Sodium 140 Potassium 3.7 Chloride 104 Carbon Dioxide 27 Anion Gap 10 BUN 10 Creatinine 0.7 Creat Clearance w eGFR > 60 POC Glucometer 195 Random Glucose 206 H Calcium 9.0 Phosphorus 4.2 Magnesium 2.0 Total Bilirubin 3.2 H AST 149 H ALT 268 H Alkaline Phosphatase 204 H Total Protein 7.8 Albumin 3.1 L Active Medications Generic Name Dose Route Start Last Admin Trade Name Freq PRN Reason Stop Dose Admin Folic Acid 1 mg 10/10/18 10:00 05/16/18 10:14 Folic Acid - PO 1 mg DAILY [facility]AIDA Administration Hydroxyzine HCl 10 mg 05/14/18 15:41 Atarax - PO Q6H PRN FOR ITCHING Dextrose/Sodium Chloride 1,000 mls @ 83 mls/hr 05/10/18 05:00 05/16/18 11:26 D5-1/2ns - IV 83 mls/hr ASDIR ZAIDA Administration Ampicillin Sodium/Sulbactam 100 mls @ 200 mls/hr 05/10/18 09:00 05/16/18 09: 16 Sodium 3 gm/ Sodium Chloride IVPB 200 mls/hr Q6H-IV ZAIDA Administration Insulin Aspart 1 vial 05/15/18 12:34 05/16/18 06:29 Novolog Vial Sliding Scale - SQ 2 units ACHS ZAIDA Administration Protocol Multivitamins/Minerals/Vitamin C 1 tab 05/11/18 10:00 05/16/18 10:14 Tab-A-Vit - PO 1 tab DAILY [facility] Administration Thiamine HCl 100 mg 05/11/18 10:00 05/16/18 10:14 Vitamin B1 - PO 100 mg DAILY [facility] Administration ASSESSMENT/PLAN: 33 y/o M with PMHx of substance abuse who presented to ED 05/09/18 c/o epigastric pain 3/10 in severity, intense itchying on his upper extremities, abdomen, and left knee, and "yellowing of his eyes" which began 2 weeks ago. Admitted for acute alcoholic hepatitis. Found to have elevated AFP. Problem List - Problems (1) Elevated AFP Assessment/Plan: * * CA 19-9 elevated at 47 this may represent pancreatic malignancy vs cirrhosis or other cholestatic disease (gallstones) * Elevated serum AFP may be seen in patients with chronic liver disease such as acute or chronic viral hepatitis, but without HCC * Awaiting HCV PCR, HCV Abs (+) * MRI show 1.6x1.0 ill defined focus of enhancement in medial right hepatic dome adjacent to intrahepatic portion of IVC and abnormalities in pancreas * Spoke with Dr. Gonzalez he states that these finding are non-specific and that this can be handled one of two ways; * Follow up MRI in 2 mo. or EUS to evaluate better the pancreas. (2) Alcohol abuse with other alcohol-induced disorder Assessment/Plan: counseled on the importance of cessation. (3) Alcoholic hepatitis (4) Cholecystitis Visit type - Emergency Visit Emergency Visit: Yes ED Registration Date: 05/10/18 Care time: The patient presented to the Emergency Department on the above date and was hospitalized for further evaluation of their emergent condition. - New Patient This patient is new to me today: No - Critical Care Critical Care patient: No
--- NOTE | 2018-05-16 11:44 | PN ---
GI Progress Note Subjective: No acute events states feeling well - Objective Vital Signs: Vital Signs Temperature 98 F 05/16/18 10:00 Pulse Rate 67 05/16/18 10:00 Respiratory Rate 20 05/16/18 10:00 Blood Pressure 101/61 05/16/18 10:00 O2 Sat by Pulse Oximetry (%) 97 05/15/18 09:00 Constitutional: Calm Eyes: Yes: Sclera Icterus Cardiovascular: Yes: Regular Rate and Rhythm Respiratory: Yes: CTA Bilaterally Gastrointestinal Inspection: No: Distention ...Auscultate: Yes: Normoactive Bowel Sounds ...Palpate: No: Tenderness Edema: No (No LE edema) Neurological: Yes: Alert, Oriented Labs: 05/16/18 06:00 05/16/18 06:00 INR 1.32 (0.83-1.09) H 05/15/18 10:24 Hepatic Panel Total Bilirubin 3.2 mg/dL (0.2-1) H 05/16/18 06:00 Direct Bilirubin 4.5 mg/dL (0.0-0.2) H 05/11/18 06:30 AST 149 U/L (15-37) H 05/16/18 06:00 ALT 268 U/L (13-61) H 05/16/18 06:00 Alkaline Phosphatase 204 U/L (45-117) H 05/16/18 06:00 Albumin 3.1 g/dl (3.4-5.0) L 05/16/18 06:00 Problem List - Problems (1) Alcoholic hepatitis Assessment/Plan: Liver chemistries show slow improvement: Previously explained to him that active hepatitis C cannot be excluded at this time. Explained to him that hepatitis C can be spread through blood contact and that he should keep his razor, tooth brush away from his family. I also advised that he should discuss things with his close contacts and have them tested as well. Also, I explained that he had an elevated tumor marker that can be seen in liver cancer. I explained that the level of elevation was not diagnostic of liver cancer however with the MRI findings, he will need continued evaluation after discharge. I stressed the need for abstinence from alcohol and illicit drugs. I gave him my office card to arrange follow-up. Code(s): K70.10 - ALCOHOLIC HEPATITIS WITHOUT ASCITES Qualifiers: Ascites presence: without ascites Qualified Code(s): K70.10 - Alcoholic hepatitis without ascites
--- NOTE | 2018-05-16 16:48 | DS ---
Physical Exam: SUBJECTIVE: Patient seen and examined this morning at bedside. Rash and itching continue to improve. No longer complaining of Abdominal pain. Denies any fevers , chills, chest pain, SOB, abdominal pain, nausea, vomiting. OBJECTIVE: Vital Signs Period Temp Pulse Resp BP Sys/Johnson Pulse Ox Last 24 Hr 97.6 F-98.5 F 58-103 18-20 94-107/49-61 97 PHYSICAL EXAM GENERAL: A&Ox3, NAD HEAD: NCAT EYES: PERRL, EOMI, scleral icteris is improving ENT: Oropharynx clear without exudates NECK: No JVD LUNGS: Breath sounds equal, clear to auscultation bilaterally, no wheezes HEART: Regular rate and rhythm, S1, S2 without murmur. ABDOMEN: Soft, nontender, nondistended, + bowel sounds, no guarding, no rebound , Negative murphys sign : Left testicle hangs lower compared to right. No scrotal skin rash, tears or erythema noted. No Swelling, lumps or loss of rugae present. No tenderness or masses palpated. EXTREMITIES: 2+ pulses, no edema. NEUROLOGICAL: Cranial nerves II through XII grossly intact. Normal speech. No tremor, No asterixis. SKIN: Warm, dry. Resolving Macular, blanchable rash most prominent overlying the lower Abdomen. Continues to improve. LABS Laboratory Last Values WBC 8.2 K/mm3 (4.0-10.0) 05/16/18 06:00 RBC 4.28 M/mm3 (4.00-5.60) 05/16/18 06:00 Hgb 13.9 GM/dL (11.7-16.9) 05/16/18 06:00 Hct 41.9 % (35.4-49) 05/16/18 06:00 MCV 97.7 fl (80-96) H 05/16/18 06:00 MCH 32.4 pg (25.7-33.7) 05/16/18 06:00 MCHC 33.1 g/dl (32.0-35.9) 05/16/18 06:00 RDW 14.9 % (11.9-15.9) 05/16/18 06:00 Plt Count 257 K/MM3 (134-434) 05/16/18 06:00 MPV 9.4 fl (7.5-11.1) 05/16/18 06:00 Absolute Neuts (auto) 5.1 K/mm3 (1.5-8.0) 05/16/18 06:00 Neutrophils % 62.0 % (42.8-82.8) 05/16/18 06:00 Lymphocytes % 24.7 % (8-40) 05/16/18 06:00 Monocytes % 6.3 % (3.8-10.2) 05/16/18 06:00 Eosinophils % 4.7 % (0-4.5) H 05/16/18 06:00 Basophils % 2.3 % (0-2.0) H 05/16/18 06:00 Nucleated RBC % 0 % (0-0) 05/16/18 06:00 PT with INR 15.60 SEC (9.7-13.0) H 05/15/18 10:24 INR 1.32 (0.83-1.09) H 05/15/18 10:24 PTT (Actin FS) 35.3 SECONDS (25.2-36.5) 05/10/18 07:10 Sodium 140 mmol/L (136-145) 05/16/18 06:00 Potassium 3.7 mmol/L (3.5-5.1) 05/16/18 06:00 Chloride 104 mmol/L (98-107) 05/16/18 06:00 Carbon Dioxide 27 mmol/L (21-32) 05/16/18 06:00 Anion Gap 10 MMOL/L (8-16) 05/16/18 06:00 BUN 10 mg/dL (7-18) 05/16/18 06:00 Creatinine 0.7 mg/dL (0.55-1.3) 05/16/18 06:00 Creat Clearance w eGFR > 60 (>60) 05/16/18 06:00 POC Glucometer 209 UNITS (80-120) 05/16/18 12:03 Random Glucose 206 mg/dL (74-106) H 05/16/18 06:00 Hemoglobin A1c % 8.6 % (4.2-6.3) H 05/12/18 06:30 Calcium 9.0 mg/dL (8.5-10.1) 05/16/18 06:00 Phosphorus 4.2 mg/dL (2.5-4.9) 05/16/18 06:00 Magnesium 2.0 mg/dL (1.8-2.4) 05/16/18 06:00 Total Bilirubin 3.2 mg/dL (0.2-1) H 05/16/18 06:00 Direct Bilirubin 4.5 mg/dL (0.0-0.2) H 05/11/18 06:30 AST 149 U/L (15-37) H 05/16/18 06:00 ALT 268 U/L (13-61) H 05/16/18 06:00 Alkaline Phosphatase 204 U/L (45-117) H 05/16/18 06:00 Ammonia 10.70 umol/L (11-32) L 05/10/18 11:20 Creatine Kinase 30 IU/L (26-308) 05/09/18 20:30 Troponin I 0.03 ng/ml (0.00-0.05) 05/09/18 20:30 Total Protein 7.8 g/dl (6.4-8.2) 05/16/18 06:00 Albumin 3.1 g/dl (3.4-5.0) L 05/16/18 06:00 Lipase 122 U/L (73-393) 05/09/18 20:30 Tumor Marker AFP 47.9 ng/ml (0.0-8.3) H 05/12/18 06:30 CA 19-9 Antigen 47 U/mL (0-35) H 05/14/18 06:30 Urine Color Hilary 05/10/18 02:26 Urine Appearance Clear 05/10/18 02:26 Urine pH 6.0 (5.0-8.0) 05/10/18 02:26 Ur Specific [place] 1.015 (1.010-1.035) 05/10/18 02:26 Urine Protein Negative (NEGATIVE) 05/10/18 02:26 Urine Glucose (UA) Negative (NEGATIVE) 05/10/18 02:26 Urine Ketones 1+ (NEGATIVE) H 05/10/18 02:26 Urine Blood Negative (NEGATIVE) 05/10/18 02:26 Urine Nitrite Negative (NEGATIVE) 05/10/18 02:26 Urine Bilirubin Negative (<2.0 mg/dL) 05/10/18 02:26 Urine Urobilinogen 2.0 mg/dL (0.2-1.0) 05/10/18 02:26 Ur Leukocyte Esterase Trace (NEGATIVE) 05/10/18 02:26 Urine WBC (Auto) 3 /hpf (3-5) 05/10/18 02:26 Urine RBC (Auto) <1 /hpf (0-3) 05/10/18 02:26 Ur Epithelial Cells Rare /HPF (FEW) 05/10/18 02:26 Urine Bacteria Rare /hpf (NONE SEEN) 05/10/18 02:26 Urine Mucus Rare 05/10/18 02:26 Acetaminophen < 2.0 ug/mL (10-30) L 05/09/18 20:30 Alcohol, Quantitative 43.5 mg/dL (0.0-5.0) H 05/09/18 20:30 Hepatitis A IgM Ab Negative (Negative) 05/10/18 07:10 Hep A IgM Ab Confirm Negative (Negative) 05/09/18 20:30 Hepatitis A Ab Total Positive (Negative) H 05/09/18 20:30 Hep Bs Antigen Negative (Negative) 05/10/18 07:10 Hep Bs Antibody Non reactive (.) 05/09/18 20:30 Hep B Core Total Ab Negative 05/09/18 20:30 Hep B Core IgM Ab Negative (Negative) 05/10/18 07:10 Hepatitis C Antibody >11.0 s/co ratio (0.0-0.9) H 05/10/18 07:10 HCV Quantitation 6480 IU/mL (.) 05/12/18 06:30 HCV RNA log copies/mL 3.812 (.) 05/12/18 06:30 HIV 1&2 Antibody Screen Negative 05/10/18 08:20 HIV P24 Antigen Negative 05/10/18 08:20 Microbiology 05/10/18 02:26 Urine - Urine Clean Catch Urine Culture - Final NO GROWTH OBTAINED IMAGING: -CXR: No acute chest pathology. -Abdominal US: Thick-walled gallbladder with trace pericholecystic fluid. There is no evidence of cholelithiasis. The possibility of acute cholecystitis cannot be excluded. Hepatomegaly and diffuse fatty infiltration of the liver. -CT A/P with Contrast: Small amount of pericholecystic free fluid with mild enhancement of the gallbladder wall and without evidence of gallstones. Findings are suspicious for acute cholecystitis. -EKG: NORMAL SINUS RHYTHM, NORMAL ECG -MRCP: No choledocholithiasis or pancreaticobiliary ductal dilatation seen. Tiny gallstone with mild gallbladder wall thickening and pericholecystic fluid. Findings are suggestive of acute cholecystitis in the right clinical setting. If indicated this can may be obtained for further evaluation. Slightly prominent pancreatic head with focal heterogeneous hypoenhancement on the arterial phase but with normalization on sequential imaging and no corresponding T1 or T2 signal abnormality nor restricted diffusion. This could be artifactual or could be secondary to focal abnormality such as focal pancreatitis or an occult lesion. No pancreatic ductal dilatation seen. Correlate with clinical history, LFTs and amylase lipase. Short-term follow-up MRI is recommended. Alternatively endoscopy with endoscopic ultrasound may be obtained for further evaluation. Heterogeneous arterial enhancement of the liver likely due to hepatocellular disease. 1.6 x 1.0 cm focus of ill-defined enhancement in the medial right hepatic dome adjacent to the intrahepatic portion of the IVC could represent focus of benign perfusion abnormality however underlying arterial enhancing lesion cannot be completely excluded. Correlate with patient's clinical history and alpha-fetoprotein level. Follow- up MRI is recommended. 1.3 cm inferior right hepatic lobe hemangioma. HOSPITAL COURSE: Date of Admission:05/10/18 Date of Discharge: 05/16/18 33 y/o M with a PMHx of polysubstance abuse presented to [facility] with 3/10 epigastric pain accompanied by pruritic rash. Admission labs revealed AST 584, ALT 641, Bilirubin 6.7, likely due to Alcohol Hepatitis however other causes were also considered. Initial imaging could not exclude acute cholecustitis. General surgery and GI were consulted. General surgery doubted cholecystitis and did not find indication for surgical intervention. GI suggested MRCP (Noted above), checking AFP (47.9) and checking quantitative HCV PCR (given Hep C Antibody positive). Oncology was consulted given the elevated AFP. CA 19-9 was checked (47) and he was told he will need follow up imaging in 2 months. His transaminitis slowly trended down and his Bilirubin peaked and trended down. His discriminant function was found to be 17.3 suggesting no need for steroids. CIWA score on admission was 7 and an Ativan protocol was completed. Patient completed a 7 day course of IV Unasyn and was discharged home on an additional 3 days of Cipro and Flagyl. His A1c was found to be at 8.6%. He was given instructions to follow up outpatient for further glycemic control. Patient was discharged home with follow up scheduled at the [facility] for Thursday 05/17 @ 3pm. He was given strict instructions for follow up with GI, Oncology and for follow up imaging. Additionally, he was told he must stop using alcohol and illicit drugs. Minutes to complete discharge: 45 Discharge Summary Reason For Visit: TRANSAMINASEMIA/CHOLECYSTITIS/HYPERBILIRUBINEMIA Current Active Problems Abnormal AST and ALT (Acute) Abnormal alkaline phosphatase test (Acute) Alcohol abuse with other alcohol-induced disorder (Acute) Alcohol induced fatty liver (Acute) Alcoholic hepatitis (Acute) Cholecystitis (Acute) Cocaine abuse (Acute) Elevated AFP (Acute) Elevated transaminase level (Acute) Hyperbilirubinemia (Acute) Jaundice (Acute) Liver mass (Acute) Marijuana abuse (Acute) Condition: Improved - Instructions Diet, Activity, Other Instructions: You were admitted for abdominal pain, itching and a rash. You were treated with intravenous antibiotics. You will continue antibiotics by mouth flagyl and ciprofloxacin. Your urine culture was negative. Blood work has shown that your liver enzymes are elevated and slowly improving. One of your lab values suggested you have an active Hepatitis C infection. Hepatitis C can be spread through blood contact, You must keep your razor and tooth brush away from other people. Additionally, you should mention this infection to anyone you may have had close contacts with as they should be tested also. One of your blood tests showed an elevated tumor marker that can be seen in liver cancer. You also showed some abnormalities on the MRI of your abdomen. YOU NEED TO FOLLOW UP WITH A GI DOCTOR AFTER DISCHARGE. IT IS EXTREMELY IMPORTANT YOU FOLLOW UP THESE FINDINGS as you may need a further testing including an endoscopic ultrasound. YOU MUST STOP USING ALCOHOL AND ILLICIT DRUGS as these can be detrimental to your health. CONTINUED ALCOHOL USE CAN LEAD TO . Please call Dr. Macedo's office to setup a follow up appointment. You were seen by an Oncologist during your stay. You may need follow up imaging including MRI of your Pancreas. Please follow up with Dr. Reese to arrange this. Please follow up with your primary care physician in one week. You can follow up with Dr. Russell at the [facility] on Wednesday at 3pm. Continue all your other medications as prescribed Please return to the ER if you have any signs or symptoms of chest pain, shortness of breath, uncontrollable fever, chills, nausea, vomiting, numbness, tingling, or weakness in any part of your body, changes in vision, or slurred speech. Please return to the ER if symptoms persist, worsen, or new symptoms arise. Referrals: Sumit Turner MD [Staff Physician] - 1 Week (Follow up with Dr. Russell at the [facility] on Wednesday at 3pm. ) Martin Macedo DO [Staff Physician] - 2 Weeks Gary Reese MD [Staff Physician] - 1 Week Disposition: HOME - Home Medications Comprehensive Discharge Medication List: Ambulatory Orders Ciprofloxacin HCl [Cipro] 500 mg PO BID #6 tablet 05/16/18 Folic Acid 1 mg PO DAILY #30 tablet 05/16/18 Multivitamin [Poly-Vitamin] 1 each PO DAILY #30 tab.chew 05/16/18 Thiamine HCl [B-1] 100 mg PO DAILY #30 tablet 05/16/18 metroNIDAZOLE [Flagyl -] 500 mg PO TID #9 tablet 05/16/18 This patient is new to me today: No Emergency Visit: Yes ED Registration Date: 05/10/18 Care time: The patient presented to the Emergency Department on the above date and was hospitalized for further evaluation of their emergent condition. Critical Care patient: No - Discharge Referral Referred to [facility] No
--- NOTE | 2018-05-16 16:55 | PN ---
Teaching Attending Note Name of Resident: Lacie Schmidt ATTENDING PHYSICIAN STATEMENT I saw and evaluated the patient. I reviewed the resident's note and discussed the case with the resident. I agree with the resident's findings and plan as documented. SUBJECTIVE: Seen and examined; patient presented with transaminitis 2/2 multiple contributing factors. Acute alcoholic vs. viral hepatitis ( quantitative HCV RNA pending, positive HCV ab) with R-inferior lobe hemangioma seen on MRI abdomen (1.6cm x1.0cm) which is improved. Acute Cholecystitis which patient will followup with sgy for and will complete 10 days total abx for prior to following up with surgery as an outpatient was also seen on the imaging as well, and he is symptomatically resolved. He improved systematically , did not go into full EtOH WD here, and will have outpatient care arranged for him. He has reached maximum benefit for his inpatient stay and can derive additional benefit from keeping his followup appointments. OBJECTIVE: VSS, all labs and imaging studies reviewed Gen: AAOx3, NAD, resting in bed CV: RRR s1/2 no mgr GI: NT ND +BS no organomegaly Skin: No rash, normal turgor HEENT: Scleral icterus noted, NC AT EOMI PERRLA Neck: No JVD, trachea midline ASSESSMENT AND PLAN: 1) Transaminitis, multifactoral: -Causes: Acute EtOH Hepatitis (no need to give the patient steroids based on discriminate score on presentation), Possible acute viral hepatitis (final titers pending). Patient will be followed up with PCP very closely (spoke with resident who will be assuming his care) and have that addressed. Furthermore, he was counseled to stop drinking. 2) Inferior right lobe hemangioma -Followup with repeat MRI in 2 months vs. EUS now; no EUS aparently available inpatient. Followup with GI. 3) Positive AFP, positive CA19-9 -Amount of elevation not consistent with cancer diagnosis purely; other explanations including intrinsic liver disease possible. Followup with OP labs and with GI and oncology. 4) Hepatitis C +Ab, other hepatitis titer findings. -Followup the quantitative titers with PCP; refer for broadloom weaver if needed 5) EtOH abuse -CIWA when inpatient; avoided DTs/sz. Counseled to stop drinking. 6) Cholecystitis -Endorsed clinically and by imaging; complete 10 day course Abx and followup with sgy 7-10 days post DC. Resident spoke with them today and were informed that he would not be ideal candidate to do something inpatient surgically given his other issues. Full Code 40 minutes spent on this DC
[2018-05-16 17:00] VITALS: BP 104/59; PULSE 61; TEMP 97.9
== END 2018-05-16 18:01 | disposition home or self-care (01) | DRG 280 ==
LOC: JER 18:39 → JERBED 05-10 00:49 → J8W 05-10 04:57
PROVIDERS: ADMIT Internal Medicine; ATTEND Internal Medicine
DX: K70.10 Alcoholic hepatitis without ascites (principal); K81.0 Acute cholecystitis; R16.0 Hepatomegaly, not elsewhere classified; F14.10 Cocaine abuse, uncomplicated; F12.10 Cannabis abuse, uncomplicated; R74.0 Nonspecific elevation of levels of transaminase and lactic acid dehydrogenase [LDH]; K70.0 Alcoholic fatty liver; R74.8 Abnormal levels of other serum enzymes; D18.09 Hemangioma of other sites; F10.188 Alcohol abuse with other alcohol-induced disorder; E11.65 Type 2 diabetes mellitus with hyperglycemia
CPT/HCPCS: 36415; 71046-TC-FY; 74177-TC; 74183-TC; 76705-TC; 80048; 80053; 80074; 80076; 80307; 81003; 81015; 82105; 82140; 82248; 82550; 82962; 83036; 83690; 83735; 84100; 84484; 85025; 85610; 85730; 86301; 86704; 86706; 86708; 87086; 87340; 87389; 87522; 90732; 93005; 93010; 99284-25; G0009; J1644; J7030